=== PATIENT | male | born 1950 | race Caucasian/White ===

== ENCOUNTER → 2018-10-14 09:50 | Outpatient (CLI) | payer MEDICARE, SELFPAY ==
--- NOTE | 2018-10-14 10:22 | XR_ITS ---
XR chest 2V HISTORY: Cough. Smoker. ITS.REASON: HTN, DIZZINESS,AMNESIA ORDERING PHYSICIAN: Christo Stevens MD PATIENT AGE: 68 years Technique: PA and lateral chest COMPARISON: PA and lateral chest 03/24/2017 FINDINGS: No acute findings. Lungs well expanded and clear. No significant change. Very vague density at the right mid lung seen in March 2017 not appreciable on today's study Left lung clear unremarkable. The heart is normal in size with jacques and mediastinal structures unremarkable. T-spine. Minimal dextro scoliosis on frontal view;... With stable accentuated kyphosis at thoracolumbar junction due to the wedge compression changes at T12 vertebra. These are unchanged since previous studies from 2014 CT and 2017 CXR.. Chest wall otherwise unremarkable. No pleural effusion. No pneumothorax. Normal pulmonary vascularity. IMPRESSION stable chest nothing definitely acute. Lungs clear . Minor other observations in text
[2018-10-14 10:58] LABS: Basophils # 0.1 K/mm3 (0-0.2); Basophils % 1.1 % (0.1-2.0); Eosinophils # 0.1 K/mm3 (0.0-0.4); Eosinophils % 3.1 % (0.1-12.0); Hematocrit 34.9 % (42.0-52.0); Hemoglobin 11.4 g/dL (14.1-18.0); Lymphocytes # 1.4 K/mm3 (0.7-4.5); Lymphocytes % 34.3 % (10-50); Mean Corpuscular HGB Conc 32.8 g/dL (31.8-35.4); Mean Corpuscular Hemoglobin 29.3 pg (27.0-31.2); Mean Corpuscular Volume 89.3 fl (80-94); Mean Platelet Volume 7.1 fl (7.4-10.4); Monocytes # 0.2 K/mm3 (0.1-1.0); Monocytes % 5.7 % (1.7-9.3); Neutrophils # 2.2 K/mm3 (1.8-7.8); Neutrophils % 55.8 % (37.0-80.0); Platelet Count 217 K/mm3 (142-424); Red Cell Distribution Width 13.8 % (11.5-17.5)
[2018-10-14 12:31] LABS: Hemoglobin A1C 5.9 % (0.0-7.0)
[2018-10-14 12:40] LABS: Alanine Aminotransferase 25 U/L (12-78); Albumin Level 3.9 gm/dL (3.4-5.0); Albumin/Globulin Ratio 1.4 (1.1-1.8); Alkaline Phosphatase 85 U/L (46-116); Anion Gap 10.5 mEq/L (5-15); Aspartate Amino Transferase 15 U/L (15-37); Bilirubin,Total 0.4 mg/dL (0.2-1.0); Blood Urea Nitrogen 13 mg/dL (7-18); Calcium 8.5 mg/dL (8.5-10.1); Carbon Dioxide 32 mmol/L (21.0-32.0); Chloride 105 mmol/L (98-107); Chol/HDL Ratio 4.8 (1-3.5); Cholesterol 211 mg/dL (140-200); Creatinine,Serum 1.17 mg/dL (0.70-1.30); Estimated Glomerular Filt Rate 62 ml/min (>60); GFR (African American) 75 ML/MIN (>60); Globulin 2.7 gm/dl (1.3-3.2); Glucose 103 mg/dL (74-106); HDL Cholesterol 44 mg/dL (27-67); LDL Cholesterol 151 mg/dL (0-130); Potassium 4.5 mmoL/L (3.5-5.1); Prostate Specific Ag Screen 0.4 ng/mL (0.0-4.0); Sodium 143 mmol/L (136-145); Thyroid Stimulating Hormone 0.79 uIU/ml (0.358-3.740); Total Protein,Serum 6.6 gm/dL (6.4-8.2); Triglycerides 79 mg/dL (30-200); VLDL Cholesterol 16 mg/dL (0-40)
[2018-10-15 10:58] LABS: Vitamin D 25 Hydroxy 17.4 ng/mL (30.0-100.0)
== END ==
PROVIDERS: PCP Family Medicine; Visit Provider Family Medicine
DX: Z12.5 Encounter for screening for malignant neoplasm of prostate (principal); R42 Dizziness and giddiness; R41.3 Other amnesia; R73.9 Hyperglycemia, unspecified; E55.9 Vitamin D deficiency, unspecified; E78.5 Hyperlipidemia, unspecified; I10 Essential (primary) hypertension
CPT/HCPCS: 36415; 71046; 80053; 80061; 82652; 83036; 84443; 85025; G0103

== ENCOUNTER → 2018-10-17 09:13 | Outpatient (CLI) | payer MEDICARE, SELFPAY ==
--- NOTE | 2018-10-17 | CI_ITS ---
Cerebrovascular Exam Indications: 433.10 Occlusion/stenosis of carotid artery without cerebral infarction. 780.4 Dizziness and giddiness. IMPRESSIONS 1. The bilateral vertebral arteries are patent with normal antegrade flow. 2. Study suggests 20-49% stenosis involving the right internal carotid artery and the left internal carotid artery. No change from the study of 01-Apr-2017. Carotid duplex study. Complete study and Doppler flow study including spectral analysis, color and mason scale imaging. Location: Vascular laboratory. Patient status: Outpatient. Tables: Arterial flow: + +--------+--------+ Location V sys V ed + +--------+--------+ Right CCA - proximal 52.6cm/s 18.9cm/s + +--------+--------+ Right CCA - distal 55.8cm/s 17.3cm/s + +--------+--------+ Right ECA 58.1cm/s -------- + +--------+--------+ Right ICA - proximal 108cm/s 40.1cm/s + +--------+--------+ Right ICA - mid 119cm/s 44.8cm/s + +--------+--------+ Right ICA - distal 73.1cm/s 30.6cm/s + +--------+--------+ Right vertebral 46.4cm/s -------- + +--------+--------+ Left CCA - proximal 66cm/s 20.4cm/s + +--------+--------+ Left CCA - distal 62.9cm/s 18.9cm/s + +--------+--------+ Left ECA 66cm/s -------- + +--------+--------+ Left ICA - proximal 105cm/s 43.2cm/s + +--------+--------+ Left ICA - mid 90.6cm/s 29.5cm/s + +--------+--------+ Left ICA - distal 68.1cm/s 22.5cm/s + +--------+--------+ Left vertebral 25.9cm/s -------- + +--------+--------+ Velocity ratios: + + + + + + Right, V sys Right, V ed Left, V sys Left, V ed + + + + + + Max ICA/dist CCA 2.13 2.59 1.67 2.29 + + + + + + (Report amended ) Electronically signed by: Lorenzo Staley [id number]
--- NOTE | 2018-10-17 09:39 | MR_ITS ---
MR head/brain wo/w con Ordering Physician: Christo Stevens MD Patient Age: 68 years: Male HISTORY: ITS.REASON: MEMORY LOSS TECHNIQUE: MR the brain with neck contrast : Precontrast Multiplanar FLAIR, T1, T2 weighted images along with axial diffusion/ADC imaging performed on 1.5 T. Siemens, MRI. Postcontrast imaging Following 15 mL ProHance T1-weighted images axial & coronal plane performed COMPARISON :March 2011 MRI brain FINDINGS . Normal cranial cervical junction and sella unremarkable. Ventricles and basal cisterns appear satisfactory. Mild diffuse cerebral atrophy age-appropriate. Diffusion images reveal no acute or recent infarct. Postcontrast images of reveal no abnormal areas of enhancement. No mass lesion. No mass effect. It FLAIR images show numerous small scattered high signal foci throughout deep white matter most numerous high signal foci at subcortical regions bilaterally these are similar to 2011 MRI brain with perhaps a few additional high signal foci bilaterally definitely notable here at the superior left subcortical towards frontal lobes is also a few new high signal foci overlying the basal ganglia left There is no territorial infarct. No subdural or extra-axial collections. The visualized paranasal sinuses are well-developed and fairly clear except for some scant mucosal thickening anterior ethmoid air cells. Negligible The mastoid air cells region unremarkable. The CP angles are clear. Cranial nerve VII and VIII appears satisfactory passing to the respective IACs no abnormal enhancement here. The cerebellar hemispheres appear normal. I would note Minimal high signal reflecting likely prominent perivascular spaces at the left more than right cerebral peduncle. But also some generous perivascular spaces at the floor the basal ganglia noted. No associated gliosis signal at these areas this favor perivascular spaces rather than small vessel ischemic foci. IMPRESSION......... No acute findings. No mass lesion. No abnormal areas of enhancement.. No territorial infarct Chronic small vessel deep white matter ischemic/ gliotic changes are again seen bilaterally at cerebral hemispheres is similar to thousand 11 .... These are most numerous & evident at the subcortical regions bilaterally. ..Majority of these high signal foci were seen on 2011 MRI brain, with only slight progression in number of high signal foci of in the interval.
== END ==
PROVIDERS: PCP Family Medicine; Visit Provider Family Medicine
DX: I65.23 Occlusion and stenosis of bilateral carotid arteries (principal); R41.3 Other amnesia; S09.90XA Unspecified injury of head, initial encounter
CPT/HCPCS: 70553; 93880

== ENCOUNTER → 2019-03-23 13:08 | Outpatient (CLI) | payer MEDICARE, OTHER, SELFPAY ==
--- NOTE | 2019-03-23 13:13 | US_ITS ---
US thyroid HISTORY: ITS.REASON: MULTINODULAR THYROID ORDERING PHYSICIAN: Christo Stevens MD PATIENT AGE: 69 years Comparison: None FINDINGS: The right lobe is 3.9 x 2.2 x 1.6 cm. There are several small cystic nodules on the right. The largest nodule is in the mid polar region at 13 x 10 mm and is mostly cystic with some internal areas of irregular echogenicity. The left lobe is 4.5 x 2.5 x 2.7 cm. In the mid pole on the left there is a 2 x 1.7 cm partially cystic nodule with some nodularity along the margins. There is a 9 mm cystic area in the lower pole and a 6 mm cystic area in the upper pole IMPRESSION: There are bilateral complex cystic lesions of the thyroid gland measuring up to 13 mm in the mid polar region on the right and 2 cm in the mid polar region on the left. Follow-up suggested to confirm stability
== END ==
PROVIDERS: PCP Family Medicine; Visit Provider Family Medicine
DX: E04.2 Nontoxic multinodular goiter (principal)
CPT/HCPCS: 76536

== ENCOUNTER → 2019-09-26 12:46 | Outpatient (CLI) | payer MEDICARE, OTHER, SELFPAY ==
--- NOTE | 2019-09-26 12:49 | US_ITS ---
PROCEDURE: US THYROID CLINICAL INDICATION: MULTINODULER THYROID Follow-up multiple thyroid nodules COMPARISON: THY US thyroid from 03/23/2019 FINDINGS: Right lobe: 3.3 x 1.2 x 2.1 cm. There is a 1.2 x 1 cm cystic nodule in the mid aspect of the right thyroid lobe with some internal debris. This is unchanged. In addition there is a 0.5 cm cystic lesion in the lower pole and a 0.5 cm additional cyst in the lower pole. No new nodules are evident. Left lobe: 4.5 x 2.3 x 2.6 cm. A 6 mm cyst is present in the upper pole. A complex cystic lesion is present in the mid polar region at 2.2 x 1.8 cm not significantly changed. There is some nodularity along the lower pole of this nodule. This is not significantly changed. Isthmus: Unremarkable Additional findings: IMPRESSION: No change multinodular goiter with multiple bilateral cysts Dictated by: Maicol Osman MD 09/26/2019 17:29 Electronically signed by Maicol Osman MD in [facility] 09/26/2019 17:29
== END ==
PROVIDERS: PCP Family Medicine; Visit Provider Family Medicine
DX: E04.2 Nontoxic multinodular goiter (principal)
CPT/HCPCS: 76536

== ENCOUNTER 2020-11-21 16:11 | Emergency (ER) | payer MEDICARE, OTHER, SELFPAY ==
[2020-11-21 16:12] VITALS: BP 198/110; PULSE 54; RESP 16; TEMP 36.8; O2SAT 98; BMI 24.2
--- NOTE | 2020-11-21 16:27 | XR_ITS ---
PROCEDURE: XR CHEST PORTABLE CLINICAL HISTORY: hip pain Posttraumatic pain, fall with injury and pain COMPARISON: CR CXR CHEST(2 VIEWS-NOT PORTABLE) from 12/29/2013 CR CXR CHEST(2 VIEWS-NOT PORTABLE) from 03/24/2017 CR CXR2V XR chest 2V from 10/14/2018 FINDINGS: The cardiomediastinal silhouette and pulmonary vascularity are within normal limits. The lungs are clear without infiltrates, suspicious nodules, or pleural effusions. No acute bony abnormalities. IMPRESSION: No acute findings. Dictated by: Maicol Osman MD 11/21/2020 18:16 Maicol Osman MD in [facility] 11/21/2020 18:16
--- NOTE | 2020-11-21 16:27 | XR_ITS ---
PROCEDURE: XR FEMUR RT 2V CLINICAL INDICATION: fall, pain COMPARISON: CR [id number] KNEE-LIMITED 2 VIEWS-RT from 05/28/[address] PELVIS WO CON from 11/21/2020 CR XR HIP RT 2-3V W/PELVIS from 11/21/2020 FINDINGS: There are mild osteoarthritic changes of the right hip. Status post prior total knee replacement with metallic stems in the distal femur and proximal tibia. Prominent hypertrophic changes are present at patella. There are prominent calcific densities anterior to the knee joint and may be due to old fractures or areas of heterotopic ossification or loose bodies. No acute fracture or dislocation is evident. IMPRESSION: Osteoarthritis of the right hip, no acute fracture. Status post total knee replacement with prominent ossicles along the anterior aspect of the knee joint and may be due to heterotopic ossification or loose bodies Dictated by: Maicol Osman MD 11/21/2020 18:21 Maicol Osman MD in [facility] 11/21/2020 18:21
--- NOTE | 2020-11-21 16:28 | XR_ITS ---
PROCEDURE: XR FEMUR RT 2V CLINICAL INDICATION: fall, pain COMPARISON: CR [id number] KNEE-LIMITED 2 VIEWS-RT from 05/28/[address] PELVIS WO CON from 11/21/2020 CR XR HIP RT 2-3V W/PELVIS from 11/21/2020 FINDINGS: There are mild osteoarthritic changes of the right hip. Status post prior total knee replacement with metallic stems in the distal femur and proximal tibia. Prominent hypertrophic changes are present at patella. There are prominent calcific densities anterior to the knee joint and may be due to old fractures or areas of heterotopic ossification or loose bodies. No acute fracture or dislocation is evident. IMPRESSION: Osteoarthritis of the right hip, no acute fracture. Status post total knee replacement with prominent ossicles along the anterior aspect of the knee joint and may be due to heterotopic ossification or loose bodies Dictated by: Maicol Osman MD 11/21/2020 18:21 Maicol Osman MD in [place] 11/21/2020 18:21
--- NOTE | 2020-11-21 16:28 | PC.NURSE ---
v/s delayed due to IV insertion.
--- NOTE | 2020-11-21 16:31 | HMH.EDGENADL ---
ED Disposition Clinical Impression: Contusion of right hip and thigh Qualifiers: Encounter type: initial encounter Qualified Code(s): S70.01XA - Contusion of right hip, initial encounter Fall Qualifiers: Encounter type: initial encounter Qualified Code(s): W19.XXXA - Unspecified fall, initial encounter Disposition: Home, Self-Care Condition on Discharge: Fair Instructions: DI for Contusion, DI for Hip Pain Additional Instructions: You have been evaluated for right hip contusion, fall. Please use compression, Gio wrap. Please take Tylenol and Motrin. Use heat. Follow-up with your primary care physician in 1 to 2 days for symptom recheck. Return to the emergency department if you have any new or worsening symptoms, pain, swelling, difficulty walking. Referrals: Christo Stevens MD [Primary Care Provider] - Time of Disposition: 19:03 - Critical Care Critical Care Time: No Attestation: On 11/21/20, the high probability of a clinically significant, sudden or life threatening deterioration of the following system(s) required my full and direct attention, intervention and personal management. The time I documented below is in addition to time spent performing reported procedures but includes the following listed in this critical care notation. Medical Decision Making - Medical Records Medical records reviewed: Yes: I reviewed the patient's medical records. - Aric Inquiry Pt receiving controlled substance: No Vital Signs: 11/21/20 16:12 11/21/20 16:36 11/21/20 17:01 Temperature 98.3 F Temperature Source Oral Pulse Rate [Radial] 54 L 75 Respiratory Rate 16 Blood Pressure [Right Arm] 198/110 H 167/120 H 163/86 H Blood Pressure Mean [Right Arm] 139 135 111 Blood Pressure Source [Right Arm] Automatic Cuff Blood Pressure Position [Right Arm] Sitting 02 Sat by Pulse Oximetry 98 98 Oxygen Delivery Method Room Air Room Air 11/21/20 17:02 11/21/20 18:42 Temperature Temperature Source Pulse Rate [Radial] 74 57 L Respiratory Rate 16 Blood Pressure [Right Arm] 163/86 H 145/92 H Blood Pressure Mean [Right Arm] 111 109 Blood Pressure Source [Right Arm] Automatic Cuff Blood Pressure Position [Right Arm] Sitting Sitting 02 Sat by Pulse Oximetry 96 100 Oxygen Delivery Method Room Air Room Air - Lab Data Lab Results 11/21/20 16:30: WBC 6.5, RBC 4.08 L, Hgb 11.8 L, Hct 37.2 L, MCV 91.0, MCH 29.0, MCHC 31.8, RDW 13.3, Plt Count 238, MPV 7.6, Neut % (Auto) 75.4, Lymph % (Auto) 17.5, Dillingham % (Auto) 4.9, Eos % (Auto) 1.3, Baso % (Auto) 0.9, Neut # (Auto) 4.9, Lymph # (Auto) 1.2, Dillingham # (Auto) 0.3, Eos # (Auto) 0.1, Baso # (Auto) 0.1 11/21/20 16:30: Sodium 137, Potassium 3.7, Chloride 101, Carbon Dioxide 31 H, Anion Gap 8.7, BUN 9, Creatinine 1.30 H, Estimated Creat Clear 52, Estimated GFR 55 L, Est GFR ( Amer) 66, Glucose 125 H, Calcium 9.9, Total Bilirubin 0.6, AST 31, ALT 29, Alkaline Phosphatase 67, Total Protein 7.5, Albumin 4.7, Globulin 2.8, Albumin/Globulin Ratio 1.7 11/21/20 16:30: SARS-CoV-2 IgG Ab (Rapid) Negative, SARS-CoV-2 IgM Ab (Rapid) Negative Result diagrams: 11/21/20 16:30 11/21/20 16:30 Orders (Tests/Meds): ED MEDICATIONS Discontinued Medications Generic Name Dose Route Start Last Admin Trade Name Freq PRN Reason Stop Dose Admin Al Hydrox/Mg Hydrox/Simethicone 30 ml 11/21/20 17:15 11/21/20 17:16 Aluminum & Magnesium Hydroxide 30ml Udc PO 11/21/20 17:16 30 ml ONCE ONE Administration Hydromorphone HCl 0.5 mg 11/21/20 19:00 11/21/20 17:45 Hydromorphone 2mg/Ml Syringe IV 11/21/20 19:01 0.5 mg ONCE ONE Administration Morphine Sulfate 4 mg 11/21/20 16:31 11/21/20 16:33 Morphine 4mg/Ml Syringe IV 11/21/20 16:32 4 mg ONCE ONE Administration Ondansetron HCl 4 mg 11/21/20 16:31 11/21/20 16:33 Ondansetron 4mg/2ml Vial IV 11/21/20 16:32 4 mg ONCE ONE Administration ORDERS Category Date Time Status CT femur RT
[2020-11-21 16:36] VITALS: BP 167/120
--- NOTE | 2020-11-21 16:40 | PC.NURSE ---
pt to rad
[2020-11-21 16:44] LABS: Basophils # 0.1 K/mm3 (0-0.2); Basophils % 0.9 % (0.1-2.0); Eosinophils # 0.1 K/mm3 (0.0-0.4); Eosinophils % 1.3 % (0.1-12.0); Hematocrit 37.2 % (42.0-52.0); Hemoglobin 11.8 g/dL (14.1-18.0); Lymphocytes # 1.2 K/mm3 (0.7-4.5); Lymphocytes % 17.5 % (10-50); Mean Corpuscular HGB Conc 31.8 g/dL (31.8-35.4); Mean Platelet Volume 7.6 fl (7.4-10.4); Monocytes # 0.3 K/mm3 (0.1-1.0); Monocytes % 4.9 % (1.7-9.3); Neutrophils # 4.9 K/mm3 (1.8-7.8); Neutrophils % 75.4 % (37.0-80.0); Platelet Count 238 K/mm3 (142-424); Red Blood Count 4.08 M/mm3 (4.60-6.20); Red Cell Distribution Width 13.3 % (11.5-17.5); White Blood Count 6.5 K/mm3 (4.8-10.8)
[2020-11-21 16:58] LABS: Alanine Aminotransferase 29 U/L (12-78); Albumin Level 4.7 g/dl (3.5-5.0); Albumin/Globulin Ratio 1.7 (1.1-1.8); Alkaline Phosphatase 67 U/L (38-126); Anion Gap 8.7 mEq/L (5-15); Aspartate Amino Transferase 31 U/L (17-59); Bilirubin,Total 0.6 mg/dl (0.2-1.3); Blood Urea Nitrogen 9 mg/dl (9-20); Calcium 9.9 mg/dl (8.4-10.2); Carbon Dioxide 31 mmol/L (22.0-30.0); Chloride 101 mmol/L (98-107); Creatinine Clearance Estimated 52 mL/min (50-200); Estimated Glomerular Filt Rate 55 ml/min (>60); GFR (African American) 66 ML/MIN (>60); Globulin 2.8 g/dL (1.3-3.2); Glucose 125 mg/dl (74-100); Potassium 3.7 mmoL/L (3.5-5.1); Sodium 137 mmol/L (136-145); Total Protein,Serum 7.5 g/dl (6.3-8.2)
--- NOTE | 2020-11-21 17:00 | PC.NURSE ---
Pt returned from rad.
[2020-11-21 17:01] VITALS: BP 163/86; PULSE 75; O2SAT 98
[2020-11-21 17:02] VITALS: BP 163/86; PULSE 74; RESP 16; O2SAT 96
[2020-11-21 17:23] LABS: Coronavirus 19 IgG Antibody Negative (Negative); Coronavirus 19 IgM Antibody Negative (Negative)
--- NOTE | 2020-11-21 17:30 | CT_ITS ---
PROCEDURE: CT PELVIS WO CON CLINICAL INDICATION: fall, right hip pain, unable to walk COMPARISON: CT CT FEMUR RT WO CON from 11/21/2020 TECHNIQUE: Axial images obtained with sagittal and coronal reformats. All CT scans at the facility use one or more dose reduction, viz: automated exposure control, ma/kV adjustment per patient size (including targeted exams where dose is matched to indication, i.e. head), or iterative reconstruction technique. FINDINGS: CT pelvis: No fracture or dislocation. There are moderate osteoarthritic changes in both hips left greater than. No lytic or blastic change. There are overlying osteophytes at the acetabula and femurs. CT femur: There is a enlargement of the vastus intermedius muscle with mild told areas increased density consistent with a large hematoma involving the vastus intermedius muscle. Artifact is present from an intramedullary drew within the mid and distal femur. There is significant artifact at the knee from a total knee prosthesis. Calcifications are present anterior to the knee joint as noted on the radiograph. Knee joint effusion is present. IMPRESSION: 1. No acute fracture. 2. Osteoarthritic change of the hip. Status post total knee replacement with significant artifact. 3. Enlargement with increased density of the vastus intermedius muscle consistent with hematoma. Follow-up suggested as a solid neoplasm could have a similar appearance.. Dictated by: Maicol Osman MD 11/22/2020 05:07 Maicol Osman MD in [facility] 11/22/2020 05:07
--- NOTE | 2020-11-21 18:08 | PC.NURSE ---
Pt to rad.
[2020-11-21 18:42] VITALS: BP 145/92; PULSE 57; O2SAT 100
--- NOTE | 2020-11-21 19:07 | PC.NURSE ---
darwin wrap applied to rt upper leg. attempted to ambulate pt. pt unable to ambulate due to increasing pain
[2020-11-21 20:07] VITALS: BP 145/80; PULSE 81; RESP 16; TEMP 36.7; O2SAT 96
== END 2020-11-21 20:09 | disposition home or self-care (01) ==
PROVIDERS: Emergency Provider Emergency Medicine; PCP Family Medicine
DX: S70.01XA Contusion of right hip, initial encounter (principal); W18.09XA Striking against other object with subsequent fall, initial encounter; R20.0 Anesthesia of skin; Z79.82 Long term (current) use of aspirin; Z79.899 Other long term (current) drug therapy; Z88.8 Allergy status to other drugs, medicaments and biological substances; I10 Essential (primary) hypertension; Z90.49 Acquired absence of other specified parts of digestive tract; Z82.49 Family history of ischemic heart disease and other diseases of the circulatory system
CPT/HCPCS: 71045; 72192; 73502; 73552; 73700; 80053; 85025; 86328; 96374; 96375; 99283; J2405

== ENCOUNTER → 2021-09-17 09:08 | Outpatient (CLI) | payer MEDICARE, OTHER, SELFPAY ==
[2021-09-17 11:30] LABS: Hemoglobin A1C 5.9 % (4.0-6.0)
[2021-09-17 11:38] LABS: Chloride 101 mmol/L (98-107)
[2021-09-17 11:39] LABS: Potassium 4.4 mmoL/L (3.5-5.1); Sodium 140 mmol/L (136-145)
[2021-09-17 11:40] LABS: 25-OH Vitamin D, Total 25.2 ng/mL (30-100)
[2021-09-17 11:41] LABS: Alanine Aminotransferase 13 U/L (12-78); Albumin Level 4.5 g/dl (3.5-5.0); Albumin/Globulin Ratio 1.9 (1.1-1.8); Alkaline Phosphatase 66 U/L (38-126); Anion Gap 9.4 mEq/L (5-15); Aspartate Amino Transferase 25 U/L (17-59); Bilirubin,Total 0.6 mg/dl (0.2-1.3); Blood Urea Nitrogen 18 mg/dl (9-20); Carbon Dioxide 34 mmol/L (22.0-30.0); Estimated Glomerular Filt Rate 50 ml/min (>60); GFR (African American) 61 ML/MIN (>60); Globulin 2.4 g/dL (1.3-3.2); Total Protein,Serum 6.9 g/dl (6.3-8.2); Triglycerides 113 mg/dl (30-150); VLDL Cholesterol 23 mg/dL (0-40)
[2021-09-17 11:42] LABS: Calcium 9.2 mg/dl (8.4-10.2); Cholesterol 210 mg/dl (140-200); Glucose 115 mg/dl (74-100); HDL Cholesterol 52 mg/dl (40-60)
[2021-09-17 17:03] LABS: Prostate Specific Ag Screen 0.9 ng/ml (0.0-4.0)
== END ==
PROVIDERS: Visit Provider Family Medicine
DX: I10 Essential (primary) hypertension (principal); E78.5 Hyperlipidemia, unspecified; E55.9 Vitamin D deficiency, unspecified; R73.9 Hyperglycemia, unspecified; Z12.5 Encounter for screening for malignant neoplasm of prostate
CPT/HCPCS: 36415; 80053; 80061; 82306; 83036; G0103

== ENCOUNTER 2021-10-03 12:00 | Emergency (ER) | payer MEDICARE, OTHER, SELFPAY ==
[2021-10-03 12:01] VITALS: BP 161/76; PULSE 61; RESP 16; TEMP 36.7; O2SAT 97; BMI 23.3
--- NOTE | 2021-10-03 12:24 | CT_ITS ---
PROCEDURE: CT FACIAL BONES WO CON CLINICAL HISTORY: fall COMPARISON: No exams were available for comparison TECHNIQUE: Axial images obtained with sagittal and coronal reformats. All CT scans at the facility use one or more dose reduction, viz: automated exposure control, ma/kV adjustment per patient size (including targeted exams where dose is matched to indication, i.e. head), or iterative reconstruction technique. FINDINGS: No obvious fracture. No sinus air-fluid level. No significant soft tissue swelling. There are severe osteoarthritic changes of the right TMJ with mild left TMJ osteoarthritis. Uvula is prominent and elongated. Unremarkable orbits IMPRESSION: No acute finding Dictated by: Maicol Osman MD 10/03/2021 14:09 Maicol Osman MD in [facility] 10/03/2021 14:09
--- NOTE | 2021-10-03 12:24 | CT_ITS ---
PROCEDURE: CT HEAD/BRAIN WO CON CLINICAL INDICATION: fall COMPARISON: None TECHNIQUE: Axial images obtained. All CT scans at the facility use one or more dose reduction, viz: automated exposure control, ma/kV adjustment per patient size (including targeted exams where dose is matched to indication, i.e. head), or iterative reconstruction technique. FINDINGS: No midline shift, mass effect, intracranial hemorrhage, hydrocephalus, or extra-axial fluid collection is evident. There is generalized atrophy with hypoattenuation of the periventricular white matter consistent with microangiopathic changes. The calvarium has an unremarkable appearance. No mastoid effusion. No sinus air-fluid level. IMPRESSION: No acute intracranial finding Dictated by: Maicol Osman MD 10/03/2021 13:29 Maicol Osman MD in [facility] 10/03/2021 13:29
--- NOTE | 2021-10-03 12:24 | CT_ITS ---
PROCEDURE: CT CERVICAL SPINE WO CON CLINICAL INDICATION: fall COMPARISON: No exams were available for comparison TECHNIQUE: Axial images obtained with sagittal and coronal reformats. All CT scans at the facility use one or more dose reduction, viz: automated exposure control, ma/kV adjustment per patient size (including targeted exams where dose is matched to indication, i.e. head), or iterative reconstruction technique. Axial spiral CT scanning performed of the cervical spine beginning at the base of the skull and continuing to the upper T-spine. 3-D multiplanar reconstruction with 3-D manipulation of volumetric data set in image rendering was completed by the radiologist and/or technologist with the supervision of the radiologist on independent workstation. FINDINGS: Normal alignment. No acute fracture or dislocation. There is an area of sclerosis involving the C7 vertebra at the proximal aspect of the spinous process and may be due to a bone island. There is multilevel cervical spondylosis with degenerative disc disease from C2 through C7. Right-sided mild foraminal narrowing at C3-C4, right-sided foraminal narrowing at C5-C6. Bulging disc osteophyte complex noted at C5-C6, bilateral foraminal narrowing at C6-C7. Right paracentral disc osteophyte complex C6-C7. 1.9 cm left thyroid hypodense nodule. Nonemergent ultrasound suggested. The uvula is prominent and elongated. IMPRESSION: 1. No acute fracture. 2. Multilevel cervical spondylosis. Please see above for detailed description. 3. Elongated prominent uvula 4. 1.9 cm left thyroid nodule. There is some minimal calcification along the inferior aspect of the nodule. Consider nonemergent thyroid ultrasound Dictated by: Maicol Osman MD 10/03/2021 14:04 Maicol Osman MD in [facility] 10/03/2021 14:04
--- NOTE | 2021-10-03 12:24 | XR_ITS ---
PROCEDURE: XR TIBIA FIBULA LT 2V CLINICAL INDICATION: fall COMPARISON: No exams were available for comparison FINDINGS: No fracture or dislocation. No lytic or blastic change. There is normal mineralization. Post total knee replacement. Heterotopic ossification noted laterally at the knee joint the Other findings:None. IMPRESSION: No acute findings. Dictated by: Maicol Osman MD 10/03/2021 14:19 Maicol Osman MD in [facility] 10/03/2021 14:19
--- NOTE | 2021-10-03 12:24 | XR_ITS ---
PROCEDURE: XR FEMUR LT 2V CLINICAL INDICATION: fall COMPARISON: CR XR FEMUR RT 2V from 11/21/2020 CR XR HIP LT 2-3V W/PELVIS from 10/03/2021 FINDINGS: No fracture or dislocation. Moderate osteoarthritis of the left hip. There is some mixed osteosclerosis and lucency noted in the femoral head not as well demonstrated on the hip films does raise suspicion for avascular necrosis of the left femoral head. Status post total knee replacement with good alignment. Other findings:None. IMPRESSION: No acute fracture. Osteoarthritis of the left hip with questionable avascular necrosis Dictated by: Maicol Osman MD 10/03/2021 14:18 Maicol Osman MD in [facility] 10/03/2021 14:18
--- NOTE | 2021-10-03 12:24 | XR_ITS ---
PROCEDURE: XR KNEE RT 3V CLINICAL INDICATION: fall COMPARISON: CR [id number] KNEE-4 OR 5 VIEWS-RT from 09/27/2013 CR [id number] KNEE-4 OR 5 VIEWS-RT from 04/24/2015 CR [id number] KNEE-LIMITED 2 VIEWS-RT from 05/13/2015 CR [id number] KNEE-LIMITED 2 VIEWS-RT from 05/28/2015 FINDINGS: Status post total knee replacement. There are long stems at the femur and tibia. No acute fracture or dislocation of the knee. There is heterotopic ossification along the distal femur laterally, lateral knee joint, infrapatellar region, and along the medial knee joint space. IMPRESSION: No acute fracture. Status post total knee replacement with heterotopic ossification as described above. Dictated by: Maicol Osman MD 10/03/2021 14:21 Maiocl Osman MD in [facility] 10/03/2021 14:21
--- NOTE | 2021-10-03 12:24 | XR_ITS ---
PROCEDURE: XR SHOULDER LT MIN 2V CLINICAL INDICATION: fall COMPARISON: No exams were available for comparison FINDINGS: No acute fracture or dislocation. Mild osteoarthritic changes of the glenohumeral joint and AC joint. There is an old left 3rd rib fracture. IMPRESSION: No acute findings. Dictated by: Maicol Osman MD 10/03/2021 14:28 Maicol Osman MD in [facility] 10/03/2021 14:28
--- NOTE | 2021-10-03 12:31 | XR_ITS ---
PROCEDURE: XR CHEST 2V CLINICAL HISTORY: fall COMPARISON: CR CXR CHEST(2 VIEWS-NOT PORTABLE) from 12/29/2013 CR CXR CHEST(2 VIEWS-NOT PORTABLE) from 03/24/2017 CR CXR2V XR chest 2V from 10/14/2018 CR XR CHEST PORTABLE from 11/21/2020 FINDINGS: The cardiomediastinal silhouette and pulmonary vascularity are within normal limits. There is patchy increased density in the left paraspinal region inferiorly at the T10-T11 area. This is of questionable clinical significance. There is mild patient rotation which may accentuate this finding. There is kyphosis of the thoracic spine with chronic wedge compression changes T11, T12, and L1. There is a minimally offset left 3rd rib fracture laterally. This may be old. Please correlate with clinical parameters.. Old fractures are present involving the left 5th and 6th ribs. IMPRESSION: Left 3rd 5th and 6th rib fractures which are probably old. Please correlate with patient's area of pain and tenderness. Slight increased paraspinal density in the lower thoracic spine on the left. This could be due to an area of infiltrate versus fibrosis or even mass. Chest CT may provide further evaluation. Dictated by: Maicol Osman MD 10/03/2021 14:27 Maicol Osman MD in [facility] 10/03/2021 14:27
--- NOTE | 2021-10-03 12:31 | XR_ITS ---
PROCEDURE: XR HIP LT 2-3V W/PELVIS CLINICAL INDICATION: fall COMPARISON: CR XR HIP RT 2-3V W/PELVIS from 11/21/2020 FINDINGS: Moderate osteoarthritic change of the left hip with mild flattening of the femoral head laterally. No acute fracture or dislocation. There are mild osteoarthritic changes of the right hip. IMPRESSION: Osteoarthritis, no acute fracture. Dictated by: Maicol Osman MD 10/03/2021 14:16 Maicol Osman MD in [facility] 10/03/2021 14:16
--- NOTE | 2021-10-03 12:32 | PC.NURSE ---
Notified rad of image orders
--- NOTE | 2021-10-03 12:44 | PC.NURSE ---
pt gone to ct
[2021-10-03 13:30] VITALS: BP 166/90; PULSE 56; O2SAT 99
--- NOTE | 2021-10-03 14:50 | PC.NURSE ---
NOTIFIED RAD OF CHEST CT
--- NOTE | 2021-10-03 14:50 | HMH.EDGENADL ---
ED Disposition Clinical Impression: Left against medical advice Disposition: Left Against Medical Advice Condition on Discharge: Undetermined Referrals: hCristo Stevens MD [Primary Care Provider] - - Critical Care Critical Care Time: No Attestation: On 10/03/21, the high probability of a clinically significant, sudden or life threatening deterioration of the following system(s) required my full and direct attention, intervention and personal management. The time I documented below is in addition to time spent performing reported procedures but includes the following listed in this critical care notation. Medical Decision Making - Medical Records Medical records reviewed: Yes: I reviewed the patient's medical records. - Aric Inquiry Pt receiving controlled substance: No Vital Signs: 10/03/21 12:01 10/03/21 13:30 10/03/21 15:15 Temperature 98.1 F 98.1 F Temperature Source Oral Pulse Rate 56 L 79 Pulse Rate [Right Radial] 61 Respiratory Rate 16 18 Blood Pressure 166/90 H 148/79 H Blood Pressure [Right Arm] 161/76 H Blood Pressure Mean [Right Arm] 104 Blood Pressure Source [Right Arm] Automatic Cuff Blood Pressure Position [Right Arm] Sitting 02 Sat by Pulse Oximetry 97 99 Oxygen Delivery Method Room Air - Lab Data Lab results reviewed: Yes: I reviewed the patient's lab results. Orders (Tests/Meds): ED MEDICATIONS Discontinued Medications Generic Name Dose Route Start Last Admin Trade Name Freq PRN Reason Stop Dose Admin Tetanus/Diphtheria Toxoids 0.5 ml 10/03/21 14:37 Tetanus-Diphth Toxoid, Adult 0.5ml Syr IM 10/03/21 14:38 .ONCE ONE Medical Decision Narrative: It is a 8-year-old male presenting with head, neck, left shoulder, left hip and right knee pain s/p fall. Patient reports no loss of consciousness or blood thinner use. Differential diagnosis includes, but is not limited to, fracture, dislocation, contusion. On initial exam, patient is hemodynamically stable nontoxic-appearing. Patient's exam is significant for tenderness to palpation over the left temporal/parietal skull but no evidence of abrasion, laceration to face, head or neck. No palpable skull fracture. Exam is negative for C-spine tenderness on exam. No tenderness to T or L-spine. Patient has full strength in all extremities, is ambulatory. He was evaluated with CT head, CT C-spine, CT chest, x-rays of the right upper extremity, left lower extremity and right knee. Patient was treated with Toradol and Tylenol for pain. Imaging was significant for an incidental 1.9 cm thyroid nodule, multiple rib fractures which were likely old and increased paraspinal density in the lower thoracic spine which could signify a mass. Given findings, patient was to be evaluated with CT chest with contrast but patient left prior to completion of work-up. I attempted to reach patient over the telephone to discuss findings but I was unable to reach patient. General Adult HPI - General Chief complaint: Fall Stated complaint: AO 1217 fall, left side pain/brusing Time Seen by Provider: 10/03/21 13:30 Mode of Arrival: Ambulatory Source of Information: Patient Limitations: No Limitations Description of Symptoms (Recalled from ER Triage Doc. by RN): Pt states that he fell approx 30 mins REDYE HAND. Pt advises that he was moving a ping pong table, it fell over the porch, and he fell with it. Pt c/o pain in the lt face, eye, head, collar bone, shoulder, hip and clark. Pt also c/o rt knee pain. Pt has multiple skin tears and abrasions throughout these areas of pain. - History of Present Illness HPI narrative: Patient is a 71-year-old male presenting with a chief complaint of head, neck, left shoulder and left hip pain s/p fall. Patient reports he was moving a ping-pong table and fell approximately 4 feet with a table on top of him. Patient denies losing consciousness but has pain in the left temporal region. He als
[2021-10-03 15:15] VITALS: BP 148/79; PULSE 79; RESP 18; TEMP 36.7; O2SAT 97
--- NOTE | 2021-10-03 15:15 | PC.NURSE ---
Pt came to nurses station stating that he had been here long enough and that he wanted to leave. explained to pt that the doctor wanted him to have a CT of his chest. He asked how long it would be and I told him that I wasn't sure of a time frame but that rad was aware of the order. He stated that he wasn't going to wait that he wanted to go on and go. Pt signed AMA form and left dept.
== END 2021-10-03 15:15 | disposition left against medical advice (07) ==
PROVIDERS: Emergency Provider Emergency Medicine; PCP Family Medicine
DX: S00.83XA Contusion of other part of head, initial encounter (principal); S40.012A Contusion of left shoulder, initial encounter; S80.12XA Contusion of left lower leg, initial encounter; S70.02XA Contusion of left hip, initial encounter; W17.89XA Other fall from one level to another, initial encounter; Y92.018 Other place in single-family (private) house as the place of occurrence of the external cause; Z96.651 Presence of right artificial knee joint; I10 Essential (primary) hypertension; T07.XXXA Unspecified multiple injuries, initial encounter
CPT/HCPCS: 70450; 70486; 71046; 72125; 73030; 73502; 73552; 73562; 73590; 99282

== ENCOUNTER 2022-06-30 13:36 | Emergency (ER) | payer MEDICARE, OTHER, SELFPAY ==
[2022-06-30 13:50] VITALS: BP 141/66; PULSE 53; RESP 16; TEMP 36.9; O2SAT 98; BMI 24.2
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
--- NOTE | 2022-06-30 14:22 | HMH.EDWNDL ---
Discharge Plan Disposition Patient Disposition: Home, Self-Care Condition: Good Prescriptions Prescriptions: No Action aspirin [Aspir-81] 81 MG Tablet. 81 mg PO DAILY Referrals Follow up/Referrals: Christo Stevens MD [Primary Care Provider] - See instructions Activity Restrictions/Add. Instructions Additional Instructions/Restrictions: Gently cleanse the wound daily with mild soapy water. Subsequently apply antibiotic ointment and a nonadhesive dressing such as Telfa. Suture removal in 5 to 7 days and apply vitamin E oil thereafter to minimize scarring. Mild intermittent bleeding for which pressure should be applied. He may also apply ice packs as needed for swelling. Clinical Impressions Clinical Impression: Laceration Instructions Patient Instructions: DI for Laceration Repair Discharge ED Provider: Pablo Hoffmann Wound/Laceration HPI General Chief Complaint: Wound/Laceration Stated Complaint: AO [email or web address] lac on head Time Seen by Provider: 06/30/22 15:03 Mode of Arrival: Ambulatory Source of Information: Patient Limitations: No Limitations Description of Symptoms (Recalled from ER Triage Doc. by RN): Pt presents with lac to top of head. States that he was moving a table, bent over, and hit his head on the corner of the table. Denies LOC. Denies being on any blood thinners. Does c/o RODRIGUEZ History of Present Illness HPI narrative: Presents complaining of scalp pain and headache after having been struck by a table while attempting to move and inverted table. Only other complaint is that of mild mid back discomfort. He denies chest pain he denies loss of consciousness.'s are described as moderate and without exacerbating alleviating factors. Related Data Home Medications Medication Instructions Recorded Confirmed benazepril 10 mg tablet 20 mg PO ONCE Hypertension 11/26/17 11/21/20 latanoprost 0.005 % eye drops 2 drops ophthalmic (eye) DAILY . 11/26/17 11/21/20 22 days aspirin 81 mg tablet,delayed 81 mg PO DAILY . 04/25/18 11/21/20 release (Aspir-) Allergies Allergy/AdvReac Type Severity Reaction Status Date / Time butorphanol [From STADOL] Allergy Unknown Verified 06/30/22 15:49 PFSH PFS Social History Smoking Status: Never smoker second hand exposure: No alcohol intake: never current occupational status: retired Travel in the last 8 weeks: None household members: spouse ROS Obtained: Yes All systems reviewed & no additional complaints except as documented Constitutional Constitutional: Reports system reviewed and no additional complaints, except as documented Physical Exam General General appearance: alert and in no apparent distress Head Head exam: other (The superior aspect of the forehead at the hairline there is a 4 cm transverse laceration ranging in depth from 1 to 2 mm. Underlying ecchymosis or significant edema.) Eye Eye exam: Present normal appearance and PERRL Neck Neck exam: Present normal inspection Chest Chest inspection: Present normal inspection Respiratory Respiratory exam: Present normal lung sounds bilaterally Cardiovascular Cardiovascular exam: Present regular rate and normal rhythm Abdominal Exam Abdominal exam: Present soft; Absent tenderness Extremities Exam Extremities exam: Present normal inspection Back Exam Back exam: Present tenderness (Mild mid thoracic paraspinous tenderness.); Absent vertebral tenderness Neurological Exam Neurological exam: Present alert and oriented X3 Psychiatric Psychiatric exam: Present normal affect Skin Skin exam: Present warm and dry Lymphatic Lymphatic Findings: no adenopathy Medical Decision Making Aric Inquiry Pt receiving controlled substance: No Vital Signs: 06/30/22 13:50 06/30/22 16:39 Temperature 98.4 F 98.4 F Temperature Source Oral Oral Pulse Rate 60 Pulse Rate [Left Radial] 53 L Respiratory Rate 16 1
[2022-06-30 16:39] VITALS: BP 140/62; PULSE 60; RESP 18; TEMP 36.9; O2SAT 98
== END 2022-06-30 16:42 | disposition home or self-care (01) ==
PROVIDERS: Emergency Provider Emergency Medicine; PCP Family Medicine
DX: S01.01XA Laceration without foreign body of scalp, initial encounter (principal); R51.9 Headache, unspecified; W22.8XXA Striking against or struck by other objects, initial encounter; Y92.019 Unspecified place in single-family (private) house as the place of occurrence of the external cause
CPT/HCPCS: 12002; 70450; 90471; 90714; 99284

== ENCOUNTER → 2022-09-08 10:26 | Outpatient (CLI) | payer MEDICARE, OTHER, SELFPAY ==
--- NOTE | 2022-09-08 10:32 | XR_ITS ---
FINAL REPORT CLINICAL HISTORY: COVID TESTING weakness, fever COMPARISON: 10/03/2021 FINDINGS: SINGLE-VIEW CHEST The heart size is normal. The mediastinum is normal. The lungs are clear. There is elevation of the distal right clavicle, stable from previous. There is no pneumothorax. IMPRESSION: No acute cardiopulmonary process. Reviewed, Interpreted and Dictated by Alexandre Nicole III, MD Transcribed by Melissa Murillo Authenticated and [facility]
[2022-09-08 10:47] LABS: Influenza A, PCR Not Detected (NotDetected); Influenza B, PCR Not Detected (NotDetected)
[2022-09-08 10:55] LABS: Basophils % 0.6 % (0.1-2.0); Eosinophils # 0.1 K/mm3 (0.0-0.4); Eosinophils % 1.7 % (0.1-12.0); Hematocrit 38.5 % (42.0-52.0); Lymphocytes % 24.7 % (10-50); Mean Corpuscular HGB Conc 33.6 g/dL (31.8-35.4); Mean Corpuscular Hemoglobin 30.4 pg (27.0-31.2); Mean Corpuscular Volume 90.5 fl (80-94); Mean Platelet Volume 8.2 fl (7.4-10.4); Monocytes # 0.3 K/mm3 (0.1-1.0); Monocytes % 6.3 % (1.7-9.3); Neutrophils # 2.6 K/mm3 (1.8-7.8); Neutrophils % 66.7 % (37.0-80.0); Platelet Count 249 K/mm3 (142-424); Red Blood Count 4.26 M/mm3 (4.60-6.20); Red Cell Distribution Width 13.8 % (11.5-17.5); White Blood Count 3.9 K/mm3 (4.8-10.8)
[2022-09-08 11:17] LABS: Coronavirus 19, PCR Detected (NotDetected)
== END ==
PROVIDERS: PCP Family Medicine; Visit Provider Family Medicine
DX: U07.1 COVID-19 (principal)
CPT/HCPCS: 36415; 71045; 85025; C9803; U0003; U0005

== ENCOUNTER 2023-05-20 14:00 | Outpatient (RCR) | payer MEDICARE, OTHER, SELFPAY ==
--- NOTE | 2023-04-22 10:09 | HMH.PTOPEV ---
PT Outpatient Evaluation Rehab PT Outpatient Evaluation Start: 04/22/23 09:52 Freq: Status: Active Protocol: Document 04/22/23 09:52 EVAN (Rec: 04/22/23 10:09 EVAN [id number]) E-signed By George Gomez, PT Outpatient Therapy Subjective History Subjective History Patient is a 73 year old male presenting to outpatient PT with reports of chronic LBP starting approx 2 year ago. Patient describes pain as intermittent spasms. Special tests indicate L upslip. Previous relief with chiro. Comorbidities include hx of B TKA, HTN and appendectomy. Chief Complaint Pain,Spasms,Stiff Symptom Type Ache Symptoms Relieved By Rest/Positioning,OTC Meds Symptoms Aggravated By Standing,Bending/Stooping, Physical Activity,Walking, Lifting Prior Functional Limitations None Current Functional Limitations Lifting,Standing,Walking, Bending/Stooping Symptom Description Intermittent Level of pain today (0-10) 0 Pain scale - at its best (0-10) 0 Pain scale - at its worst (0-10) 8 Lumbopelvic Eval Posture Thoracic Spine Posture Standing Position Increased Kyphosis Lumbar Spine Posture Standing Position Decreased Lordosis Palapation tenderness left Lumbar/Sacral Palpation Overall Comment L PSIS 2/4 Accessory Movement L2 bilateral L3 bilateral L4 bilateral L5 bilateral S1 bilateral Range of Motion Lumbar Spine Active Flexion Range of 78 Motion (degrees) Lumbar Spine Active Extension Range of 10 Motion (degrees) Left Lumbar Spine Lateral Flexion Active 20 Range of Motion (degrees) Right Lumbar Spine Lateral Flexion 17 Active Range of Motion (degrees) Lumbar Spine ROM Limitations Soft Tissue Tightness,Bony Restriction Manual Muscle Test Bilateral Knee Extension Strength Grade 5 Normal Knee Flexion Strength Grade 5 Normal Hip Flexion Strength Grade 5 Normal Extensor Hallucis Longus Strength Grade 5 Normal Ankle Dorsiflexion Strength Grade 5 Normal Gastronemius/Soleus Strength Grade 5 Normal Special Tests Hip Dominic (SHITAL) Test Positive Left,Positive Right Hip Manisha Test Positive Left,Positive Right Hip Piriformis Test Positive Left,Positive Right Sciatic Nerve Tension Test Negative Left,Negative Right Sacroi
== END 2023-05-20 15:00 | disposition home or self-care (01) ==
LOC: PT 14:00
PROVIDERS: PCP Family Medicine; Visit Provider Physician Assistant
DX: S39.012D Strain of muscle, fascia and tendon of lower back, subsequent encounter (principal)
CPT/HCPCS: 97010; 97014; 97110; 97140; 97163; 97530; G0283

== ENCOUNTER → 2023-10-15 12:35 | Outpatient (CLI) | payer MEDICARE, OTHER, SELFPAY ==
--- NOTE | 2023-10-15 12:39 | XR_ITS ---
FINAL REPORT CLINICAL HISTORY: LOW BACK PAIN FINDINGS: LUMBAR SPINE Five views demonstrate no acute fracture. There is a 50% compression deformity of T12. There is moderate anterior osteophyte formation at T11-12 and T12-L1. There is moderate loss of height at the L5-S1 level. There is no malalignment. IMPRESSION: 50% compression deformity of T12 with associated hypertrophic changes, probably chronic. Reviewed, Interpreted and Dictated by Eliazar Escalante MD Transcribed by Melissa Murillo Authenticated and [facility]
== END ==
LOC: RAD 12:36
PROVIDERS: PCP Family Medicine; Visit Provider Physician Assistant
DX: M54.50 Low back pain, unspecified (principal)
CPT/HCPCS: 72110

== ENCOUNTER 2023-11-30 08:03 | Outpatient (CLI) | payer MEDICARE, OTHER, SELFPAY ==
--- NOTE | 2023-11-30 | MR_ITS ---
FINAL REPORT CLINICAL HISTORY: LEFT LEG AND HIP PAIN LBP WORSE ON LEFT SIDE FINDINGS: Multiplanar MR imaging of the lumbar spine was performed without contrast. Motion artifact is identified on many of the images. On the sagittal T2-weighted images, disc degeneration is seen throughout. There is a moderate chronic T12 compression fracture. The vertebral alignment is normal. There is no evidence of fracture. The conus has an unremarkable appearance. L1-2: An annular bulge is present. Facet arthropathy and osteophytes are present. There is moderate bilateral neural foraminal narrowing. L2-3: An annular bulge is present. Facet arthropathy and osteophytes are present. There is moderate bilateral neural foraminal narrowing. L3-4: An annular bulge and facet arthropathy are present. There is a right foraminal disc protrusion with severe right and moderate left neural foraminal narrowing. L4-5: An annular bulge and facet arthropathy are present. There is a left foraminal disc protrusion severe bilateral neural foraminal narrowing. There is mild central canal stenosis with an AP diameter of the thecal sac of 7 mm. L5-S1: An annular bulge is present. Facet arthropathy and osteophytes are present. There are Modic type 1 and type 2 endplate changes. There is severe bilateral neural foraminal narrowing. IMPRESSION: Right foraminal disc protrusion at L3-4 with severe right neural foraminal narrowing. Left foraminal disc protrusion at L4-5 with severe bilateral neural foraminal narrowing and mild central canal stenosis. Multilevel degenerative disc disease and spondylosis. Reviewed, Interpreted and Dictated by Alexandre Nicole III, MD Transcribed by Melissa Murillo Authenticated and [facility]
--- NOTE | 2023-11-30 | MR_ITS ---
FINAL REPORT CLINICAL HISTORY: LEFT LEG AND HIP PAIN MID BACK PAIN WORSE ON LEFT SIDE FINDINGS: Multiplanar MR imaging of the thoracic spine was performed without contrast. On the sagittal T2-weighted images, disc degeneration is seen at multiple levels. There is a moderate chronic T12 compression fracture. There is kyphosis centered on T11. The vertebral alignment is normal. There is a small syrinx in the thoracic cord from T2-T8 measuring up to 4 mm in diameter. There is no evidence of significant canal stenosis or cord compression. On the axial images, mild disc bulges and small osteophytes are seen at multiple levels. No focal soft disc protrusion is identified. There is no evidence of significant canal stenosis or cord compression. No paraspinous soft tissue abnormality is identified. IMPRESSION: Multilevel mild degenerative disc disease and spondylosis. Moderate chronic T12 compression fracture. Small syrinx from T2-T8 measuring up to 4 mm in diameter. Reviewed, Interpreted and Dictated by Alexandre Nicole III, MD Transcribed by Melissa Murillo Authenticated and [facility]
== END 2023-11-30 23:59 ==
PROVIDERS: PCP Family Medicine; Visit Provider Physician Assistant
DX: M54.50 Low back pain, unspecified (principal); M54.6 Pain in thoracic spine; M54.2 Cervicalgia; M43.9 Deforming dorsopathy, unspecified
CPT/HCPCS: 72146; 72148; 76376

== ENCOUNTER 2024-01-07 14:00 | Outpatient (RCR) | payer MEDICARE, OTHER, SELFPAY ==
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
== END 2024-01-07 15:20 | disposition home or self-care (01) ==
LOC: PT 14:00
PROVIDERS: PCP Family Medicine; Visit Provider Family Medicine
DX: M51.26 Other intervertebral disc displacement, lumbar region (principal)
CPT/HCPCS: 97010; 97014; 97110; 97163; 97530; G0283

== ENCOUNTER 2025-01-15 16:32 | Outpatient (CLI) | payer MEDICARE, OTHER, SELFPAY ==
--- NOTE | 2025-01-15 16:36 | XR_ITS ---
PROCEDURE INFORMATION: Exam: XR Cervical Spine Exam date and time: 01/15/2025 4:37 PM Age: 74 years old Clinical indication: Radicular pain (radiculopathy); Cervical region; Additional info: Pain in right arm TECHNIQUE: Imaging protocol: Radiologic exam of the cervical spine. Views: 2 or 3 views. COMPARISON: CT CERVICAL SPINE WO CON 10/03/2021 12:40 PM FINDINGS: Bones/joints: Osteopenia. No gross fracture or malalignment. Mild disc space narrowing C5-C6 and C6-C7. Mild-moderate marginal spurring C5-C6 and C6-C7, and to a lesser degree at the other cervical levels. 7 mm bone island in the C7 spinous process unchanged. Rightward convexity thoracic scoliosis marginally visualized. Soft tissues: Prevertebral soft tissues are normal. Lungs: Visualized pulmonary apices are clear. Vasculature: Moderate-severe right and mild-moderate left calcific atherosclerosis in the carotid bulbs. IMPRESSION: 1. No acute findings. No gross change from 10/03/2021. 2. Osteopenia and chronic osteoarthritic changes.
== END 2025-01-15 23:59 | disposition home or self-care (01) ==
LOC: RAD 16:33
PROVIDERS: PCP Family Medicine; Visit Provider Family Medicine
DX: M79.601 Pain in right arm (principal); M54.12 Radiculopathy, cervical region
CPT/HCPCS: 72040

== ENCOUNTER 2025-06-13 19:01 | Emergency (ER) | payer MEDICARE, SELFPAY ==
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
[2025-06-13 19:11] VITALS: BP 114/60; PULSE 69; RESP 18; TEMP 36.5; O2SAT 95; BMI 24.5
--- NOTE | 2025-06-13 19:15 | XR_ITS ---
PROCEDURE INFORMATION: Exam: XR Right Forearm Exam date and time: 06/13/2025 7:20 PM Age: 75 years old Clinical indication: Injury or trauma; Fall; Blunt trauma (contusions or hematomas); Wrist; Right; Additional info: Wrist injury, fall TECHNIQUE: Imaging protocol: Radiologic exam of the right forearm. Views: 2 views. COMPARISON: CR XR WRIST RT MIN 3V 06/13/2025 7:19 PM FINDINGS: Bones/joints: Distal radius fracture redemonstrated. No other fracture evident. Advanced degenerative changes of the wrist and elbow noted. Soft tissues: Normal. IMPRESSION: Distal radius fracture.
--- NOTE | 2025-06-13 19:15 | XR_ITS ---
PROCEDURE INFORMATION: Exam: XR Right Wrist Exam date and time: 06/13/2025 7:19 PM Age: 75 years old Clinical indication: Injury or trauma; Fall; Blunt trauma (contusions or hematomas); Wrist; Right; Additional info: Wrist injury, fall TECHNIQUE: Imaging protocol: Radiologic exam of the right wrist. Views: 3 or more views. COMPARISON: CR [id number] XR hand RT min 3V 11/09/2018 11:35 AM FINDINGS: Bones/joints: Impacted nondisplaced fracture of the distal radial metaphysis. No other acute fracture identified. Advanced degenerative changes of the wrist most pronounced involving 1st carpometacarpal joint. Advanced degenerative changes of the partially included hand involving the 1st through 4th MCP joints. Soft tissues: Normal. IMPRESSION: Distal radius fracture.
--- NOTE | 2025-06-13 19:28 | PC.NURSE ---
patient to radiology via wheelchair with radiology asst
[2025-06-13 19:30] VITALS: O2SAT 100
--- OUTSIDE RECORDS SUMMARY | 2025-06-13 19:34 | XMS_ITS | Clinical Summary ---
Author Organization [facility] Address [address] [place] [address] Care Team Providers Care Credit Professional Name Role Phone Rogelio Jones MD Primary Care Provider + [phone] Allergies Active Allergy Reactions Criticality Noted Date Comments Memantine Other (See Comments) 11/23/2023 Pt felt odd Butorphanol Unknown - Low Severity 01/17/2021 Medications diclofenac (VOLTAREN) 75 MG EC tablet Take 1 tablet by mouth 2 (Two) Times a Day. 1 Active latanoprost (XALATAN) 0.005 % ophthalmic solution 1 Active triamcinolone (KENALOG) 0.1 % cream APPLY CREAM EXTERNALLY THREE TIMES DAILY NEEDED 1 Active ketoconazole (NIZORAL) 2 % shampoo APPLY TOPICALLY DIRECTED 2 Active metoprolol succinate XL (TOPROL-XL) 25 MG 24 hr tablet Take 1 tablet by mouth Daily. 2 Active donepezil (ARICEPT) 10 MG tablet Take 1 tablet by mouth Daily. 2 Active irbesartan-hyd rochlorothiazi de (AVALIDE) 300-12.5 MG tablet Take 1 tablet by mouth Every Morning. Active tamsulosin (FLOMAX) 0.4 MG capsule 24 hr capsule Take 1 capsule by mouth Daily. 4 Active QUEtiapine (SEROquel) 25 MG tablet Take 1 tablet by mouth Every Night for 30 days. 30 tablet 1 5 Active Additional Information Patient not taking.Reported on 05/28/2025 amLODIPine (NORVASC) 10 MG tablet Take 1 tablet by mouth Daily. 5 Active Cholecalcifero l (Vitamin D3) 1.25 MG (18557 UT) capsule Take 1 capsule by mouth 1 (One) Time Per Week. 5 Active memantine (NAMENDA) 10 MG tablet Take 1 tablet by mouth 2 (Two) Times a Day for 90 days. 180 tablet 1 5 025 Active divalproex (DEPAKOTE) [address] tablet Take 1 tablet by mouth Daily for 30 days. 30 tablet 3 5 025 Active amLODIPine-jessenia azepril (LOTREL 5-20) 5-20 MG per capsule Take 1 capsule by mouth Daily. 1 025 Discontinu ed(Discont inued by another clinician) memantine (NAMENDA) 10 MG tablet Take 1 tablet by mouth Daily for 90 days. 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 (Primary Dx) 05/28/2025 Travel 04/03/2025 10:00 AM EDT - 04/03/2025 11:59 PM EDT Hospital Encounter [facility] [address] [place] [address] Mayra Reza, MS [facility]-QUALITY ASSURANCE COORDINATOR Memory loss (Primary Dx) Discharge Disposition: Home or Self Care 03/20/2025 10:00 AM EDT - 03/20/2025 11:59 PM EDT Hospital Encounter [facility] [address] [place] [address] Mayra Reza, MS [facility]-QUALITY ASSURANCE COORDINATOR Memory loss (Primary Dx) Discharge Disposition: Home or Self Care 03/20/2025 Travel from Last 3 Months Immunizations Immunization Administration Dates Next Due FLUAD TRI 65YR+ 08/18/2024 Fluzone >6mos 07/21/2015 Fluzone High-Dose 65+YRS 07/15/2020,07/18,10/31/2018,08/31/2017, 016 Fluzone High-Dose 65+yrs 08/19/2023 Rabies IM 2 03/13/2014,03/06/2014,03/02/2014 ,02/27/2014 Rabies Immune Globulin 02/27/2014 Td, Not Adsorbed 06/30/2022 Tdap 11/25/2018,04/25/2018 Zostavax 06/15/2016 Family History Medical History Relation Name Comments Alcohol abuse Father [place] Migraines Father Aaron Stroke Father [place] Diabetes Mother Dementia Sister Tasha Alzheimers Memory loss Sister Tasha Relation Name Status Comments Father [place] Mother Sister Tasha Social History Tobacco Use Types Packs/Day Years [...] Orientation Straight 05/28/2025 10 :42 AM EDT Last Filed Vital Signs Vital Sign Reading Time Taken Comments Blood Pressure 126/78 05/28/2025 2:13 PM EDT Pulse 58 05/28/2025 2:13 PM EDT Temperature 36.3 C (97.3 F) 01/17/2021 10:59 AM EDT Respiratory Rate 16 04/22/2022 11:0 0 AM EDT Oxygen Saturation 96% 05/28/2025 2:13 PM EDT Inhaled Oxygen Concentration - - Weight 68 kg (150 lb) 05/28/2025 2:13 PM EDT nikhil f reported Height 170.2 cm (5' 7 ) 05/28/2025 2:13 PM EDT s elf reported Body Mass Index 23.49 05/28/2025 2:13 PM EDT Plan of Treatment Upcoming Encounters Date Type Department Care Team (Late st Contact Info) Description 12/24/2025 3:00 PM EDT Office Visit [facility] [address] [facility] [address] [place] [address] Landry Martinez MD [address] [facility] [address] [place] [address] Health Maintenance Due Date Last Done Comments COLOGUARD 02/14/1996 COLON CANCER SCREENING 5 YEA R SIGMOIDOSCOPY 02/14/1996 COLONOSCOPY 02/14/1996 COLORECTAL CANCER SCREENING 02/14/1996 CT COLONOGRAPHY 02/14/1996 FECAL OCCULT BLOOD TEST 02/14/1996 FIT Testing (1 year) 02/14/1996 Pneumococcal Vaccine 50+ (1 of 1 - PCV) 2001 ZOSTER VACCINE (2 of 3) 08/10/2016 06/15/2016 ANNUAL WELLNESS VISIT 01/17/2021 HEPATITIS C SCREENING 01/17/2021 COVID-19 Vaccine (5 - 2023-2 5 season) 2024 08/19/2023, 08/17/2021, 01/04/2021, Additional history exists QUALITY ASSURANCE COORDINATOR PLAN OF CARE 07/02/2025 04/03/2025, 03/2025, 07/21/2024 INFLUENZA VACCINE 07/18/2025 08/18/2024, , 07/15/2020, Additional history exists TDAP/TD VACCINES (4 - Td or Tdap) 06/30/2032 06/30/2022, 11/25/2018, 04/25/2018 Insurance MEDICARE A & B [facility] SU[facility] Care Teams Credit Professional Relationship Specialty Start Date End Date Rogelio Jones MD [address] [facility] [address] [facility] [address] [place] [address] PCP - General Family Medicine 11/27/24
--- OUTSIDE RECORDS SUMMARY | 2025-06-13 19:34 | XMS_ITS | Encounter Summary ---
Author Organization Healthcare Address [address] [place] [address] Care Team Providers Care Tafe Registrar Name Role Phone Christo Stevens MD Primary Care Provider + [phone] Daniela Mckinley MD Unavailable [phone] Daniela Mckinley MD Unavailable [phone] Encounter Details Date Type Department Care Team (Late st Contact Info) Description 11/24/2023 Community [facility] [address] [place] [address] Landry Martinez MD [address] [facility] [address] [place] [address] Memory loss (Primary Dx) Social History Tobacco Use Types Packs/Day Years Used Date Smoking Tobacco: Never Smokeless Tobacco: Never Alcohol Use Standard Drinks/Week Comments Not Currently 0 (1 standard drink = 0.6 oz pur e alcohol) Sex and Gender Information Value Date Recorded Sex Assigned at Not on file Legal Sex Male 6:20 PM EDT Gender Identity Not on file Sexual Orientation Not on file documented as of this encounter Plan of Treatment Upcoming Encounters Date Type Department Care Team (Late st Contact Info) Description 07/23/2025 11:00 AM EDT Consult [facility] [address] [place] [address] Anastacia Us MD [address] [facility] [address] [place] [address] documented as of this encounter Visit Diagnoses Diagnosis Memory loss- Primary documented in this encounter Additional Health Concerns Assessment Noted Time A fall risk assessment has been complete d for the patient 06/11/2021 10:40 AM EDT documented as of this encounter Care Teams Tafe Registrar Relationship Specialty Start Date End Date Christo Stevens MD [address] [place] [address] PCP - General 02/28/21 Daniela Mckinley MD [address] [place] [address] Service Attending Neurology 06/11/21 Daniela Mckinley MD [address] [place] [address] Service Attending Neurology 12/10/21 documented as of this encounter
--- OUTSIDE RECORDS SUMMARY | 2025-06-13 19:34 | XMS_ITS | Encounter Summary ---
Author Organization [facility] Address [address] [place] [address] Care Team Providers Care Distribution Center Administrator Name Role Phone Christo Stevens MD Primary Care Provider + [phone] Daniela Mckinley MD Unavailable [phone] Daniela Mckinley MD Unavailable +[phone] Encounter Details Date Type Department Care Team (Late st Contact Info) Description 01/19/2022 Community [facility] [address] [place] [address] Sabi Bonner PA [address] [facility] [address] [place] [address] Memory loss (Primary Dx) Social History Tobacco [...] Description 07/23/2025 11:00 AM EDT Consult [facility] [place] [facility] [address] [place] [address] Anastacia Us MD [address] [place] [address] documented as of this encounter Visit Diagnoses Diagnosis Memory loss- Primary documented in this encounter Additional Health Concerns Assessment Noted Time A fall risk assessment has been complete d for the patient 06/11/2021 10:40 AM EDT documented as of this encounter Care Teams Distribution Center Administrator Relationship Specialty Start Date End Date Christo Stevens MD [address] [place], [place] [address] PCP - General 02/28/21 Daniela Mckinley MD [address] [place] [address] Service Attending Neurology 06/11/21 Daniela Mckinley MD [address] [place] [address] Service Attending Neurology 12/10/21 documented as of this encounter
--- OUTSIDE RECORDS SUMMARY | 2025-06-13 19:34 | XMS_ITS | Encounter Summary ---
Author Organization [facility] Address [address] [place] [address] Care Team Providers Care Sed Middle School Teacher Name Role Phone Rogelio Jones MD Primary Care Provider + [phone] Encounter Details Date Type Department Care Team (Latest Contact Info) Description 05/28/2025 Travel Social History Tobacco Use Types Packs/Day Years Used Date Smoking Tobacco: Never Passive Smoke Exposure: Never Smokeless Tobacco: Never Alcohol Use Standard Drinks/Week Comments Never 0 (1 standard drink = 0.6 oz pur e alcohol) AUDIT-C Answer Date Recorded Q1: How often do you have a drink containing alc ohol? Never 01/17/2021 Average Number of Drinks Not on file Frequency of Binge Drinking Not on file 11/2020 Sex and Gender Information Value Date Recorded Sex Assigned at Male 05/28/2025 10:42 AM EDT Legal Sex Male 8:17 AM EDT Gender Identity Not on file Sexual Orientation Straight 05/28/2025 10 :42 AM EDT documented as of this encounter Plan of Treatment Upcoming Encounters Date Type Department Care Team (Late st Contact Info) Description 12/24/2025 3:00 PM EDT Office Visit [facility] [address] [facility] [address] [place] [address] Landry Martinez MD [address] [facility] [address] [place] [address] documented as of this encounter Visit Diagnoses Not on filedocumented in this encounter Care Teams Sed [employer] Teacher Relationship Specialty Start Date End Date Rogelio Jones MD [address] [place] [address] [place] [address] PCP - General Family Medicine 11/27/24 documented as of this encounter
--- OUTSIDE RECORDS SUMMARY | 2025-06-13 19:34 | XMS_ITS | Clinical Summary ---
Author Organization [facility] Address [address] [place] [address] Phone Care Team Providers Care Life Science Research Assistant Name Role Phone Jaswinder ESCOBAR, Lane Vyas [phone] Conditions or Problems Problem Name Problem Code Onset Date Status Entry Date Provider Comment Standard Description Annotate Inguinal lymphadenopa thy, right 480770293 (SNOMED CT) 11/26 Active 11/26 [address] San MD. 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 (ICD-10-CM ) Active Swati W Acquired absence of right knee Infection and inflammatory reaction due to internal right knee prosthesis, initial encounter T84.53xA (ICD-10-CM ) Active Swati W Infection and inflammatory reaction due to internal right knee prosthesis, initial encounter SERRATIA B96.89 (ICD-10-CM ) Inactive Swati W Other specified bacterial agents as the cause of diseases classified elsewhere Medications Medication Instructions Start Date Stop Date Generic Name NDC Provider INVANZ 1 GM INTRAVENOUS SOLUTION RECONSTITUTED 1gm IV Q24hrs/ OPAT ERTAPENEM SODIUM 02784667465 Stephanie S AMITRIPTYLINE HCL 150 MG TABS take 1 tablet daily AMITRIPTYLINE HCL 09376383421 Nohemi Juan A TREXIMET 85-500 MG TABS as needed SUMATRIPTAN-NAPR OXEN SODIUM 35903503425 Nohemi A BENAZEPRIL HCL 20 MG TABS take 1 tablet daily BENAZEPRIL HCL [id number] Nohemi A FORTAZ (IV) FORTAZ (IV) Nohemi A FORTAZ (IV) FORTAZ (IV) Nohemi A INVANZ 1 GM INTRAVENOUS SOLUTION RECONSTITUTED 1gm IV Q24hrs/ OPAT ERTAPENEM SODIUM [id number] Neelima Velarde RN Medications Administered No information available. Allergies, Adverse Reactions, Alerts Allergy Name Reaction Description Start Date Severity Statu s Provider STADOL Moderate Active Alexandre S Results Date Name Value Unit Range Flag Description Lab Report: CBC w Auto Diff ZZ-GE-unk 0.0 GE use only - for LinkLogic import when terms are not otherwise specified Clinical Lists Update: [facility] [place] [facility] secmsg Patient's prefered method of contact Lab Report: CBC w Auto Diff IMM GRANU % 0.2 % 0.0-0.6 N Immature granulocytes/100 leukocytes in Blood BASOPHIL % 0.7 % 0.0-1.0 N Basophils/ 100 leukocytes in Blood by Manual count % EOS AUTO 3.5 % 0.0-3.0 H Eosinophil s/100 leukocytes in Blood by Automated count MONOCYTE BF 8.7 % 0.0-12.0 N monocyte s as percent of body fluid leukocytes LYMPHOCY BF 35.1 % 24.0-44.0 N lymphoc ytes as percent of body fluid leukocytes NEUTROP BF 51.8 % 41.0-71.0 N Neutroph ils/100 leukocytes in Body fluid BASOABSOLMAN 0.03 K/MCL {Cells}/u L 0.00-0.20 N basophils, absolute, manual EOS ABSLT 0.15 10*3/uL 0.10-0.30 N Eosinophi ls [#/volume] in Blood MONOCYTABMAN 0.37 K/MCL {Cells}/u L 0.00-1.00 N monocytes, absolute, manual LYMPHSABSMAN 1.49 K/MCL {Cells}/u L 0.60-4.80 N lymphocytes, absolute, manual ABS NEUTROPH 2.19 10*3/uL 1.50-8.30 N Neutro phils [#/volume] in Blood PLATELETS 209 10*3/mm3 150-450 N Platelets [#/volume] in Blood by Automated count RDW_ 15.9 11.3-14.5 H RDW, no uni ts MCHC 32.1 G/DL 32.0-36.0 N MCHC [Mass/ volume] by Automated count MCH 26.6 pg 27.0-31.0 L MCH [Entiti c mass] by Automated count MCV 82.7 fL 80.0-99.0 N MCV [Entiti c volume] by Automated count HCT 36.4 % 38.9-50.9 L Hematocrit [Volume Fraction] of Blood by Automated count HGB 11.7 g/dL 13.1-17.5 L Hemoglobin [Mass/volume] in Blood RBC 4.40 M/MCL 10*6/mm3 4.20-5.76 N Erythro cytes [#/volume] in Blood by Automated count WBC 4.24 10*3/mm3 3.50-10.8 0 N Leukocytes [#/volume] in Blood by Automated count Lab Report: Comprehensive Me tabolic Panel ANIONGAP 4 mmol/L 3-11 N anion gap, s carlos GFRC 100 mL/min/1. 73m2 Glomerular Filtration Rate Calculation ALBUMIN 4.1 g/dL 3.2-4.8 N Albumin [Mass/volume] in Serum or Plasma PROTEIN, TOT 7.1 g/dL 5.7-8.2 N Protein [Mass/volume] in Serum or Plasma BILI TOTAL 0.2 mg/dL 0.3-1.2 L Bilirubin. total [Mass/volume] in Serum or Plasma SGPT (ALT) 17 U/L 7-40 N Alanine aminotransferase [Enzymatic activity/volume] in Serum or Plasma SGOT (AST) 17 U/L 0-33 N Aspartate aminotransferase [Enzymatic activity/volume] in Serum or Plasma ALK PHOS 117 U/L 25-100 H Alkaline rabia sphatase [Enzymatic activity/volume] in Blood CALCIUM 9.4 mg/dL 8.7-10.4 N Calcium [Moles/volume] in Serum or Plasma CO2 33 mmol/L 20-31 H Carbon dioxid e, total [Moles/volume] in Venous blood CHLORIDE 103 mmol/L 99-109 N Chloride [Moles/volume] in Serum or Plasma POTASSIUM 5.0 mmol/L 3.5-5.5 N Potassium [Moles/volume] in Serum or Plasma SODIUM 140 mmol/L 132-146 N Sodium [Moles/volume] in Serum or Plasma CREATININE 0.9 mg/dL 0.6-1.3 N Creatinine [Mass/volume] in Serum or Plasma BUN 8 mg/dL 9-23 L Urea nitrogen [Mass/volume] in Serum or Plasma GLUCOSE SER 104 mg/dL 70-100 H Glucose [Mass/volume] in Serum or Plasma Lab Report: C-Reactive Prote in CRPCARDRISK 0.3 mg/L 0.000-10. 0 N C reactive protein [Mass/volume] in Serum or Plasma Lab Report: ESR (Sed Rate) ESR 5 mm/h 0-20 N Erythrocyte sedimentation rate by Westergren method Office Visit: Room #4 MEDS REVIEW Done Documenta tion of current medications (procedure) ORALTOBACUSE Never Tobacco smoking status SMOK STATUS Never smoker Tobacco smoking status Plan of Care Type Date Detail Pending order Discontinue IV a ntibiotics Pending order PICC Removal Pending order Continue IV anti biotics Pending order Weekly PICC Line Care Pending order Ertapenem Pending order Continue IV anti biotics Pending order Weekly PICC Line Care Pending order Ertapenem Pending order Continue IV anti biotics Pending order Ertapenem Pending order PICC Dressing Ch nona Pending order Continue IV anti biotics Pending order Ertapenem Pending order PICC Dressing Ch nona Pending order Stat Weekly Labs Patient education Ertapenem%20(I njection)%20(Injectable) Procedures Code Procedure Name Date Entry Date CPT-DC Discontinue IV antibiotics 2 CPT-PICREM PICC Removal CPT-ca Continue IV antibiotics 2014 CPT-wpc Weekly PICC Line Care 10/21 CPT-J1335 Ertapenem CPT-ca Continue IV antibiotics 2014 CPT-wpc Weekly PICC Line Care CPT-J1335 Ertapenem CPT-ca Continue IV antibiotics 2014 CPT-J1335 Ertapenem CPT-pdc PICC Dressing Change CPT-ca Continue IV antibiotics 2014 CPT-J1335 Ertapenem CPT-pdc PICC Dressing Change CPT- stat weekly Stat Weekly Labs Vital Signs Date Name Value Unit Description BMI (Body Mass Index) 23.40 kg/m2 Bod y Mass Index (Ratio) Body Temperature 97.4 [degF] temperat ure E&M BP Diastolic 82 mm[Hg] blood pressu re, diastolic BP Systolic 130 mm[Hg] blood pressur e, systolic Heart Rate 80 /min pulse rate Respiratory Rate 12 /min respirat ory rate E&M Weight Measured 145 [lb_av] weight E& M Weight Measured 145 [lb_av] weight E& M Height 66 [in_us] height E&M Immunizations Vaccine Administration Date Standard Description CVX Co de Dose Afluria Intramuscular Suspension Afluria Intramuscular Suspension 141 Unknown Advance Directives No information available.
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
--- OUTSIDE RECORDS SUMMARY | 2025-06-13 19:34 | XMS_ITS | Clinical Summary ---
Author Organization Healthcare Address [address] [place] [address] Care Team Providers Care Scheduler Maintenance Name Role Phone Christo Stevens MD Primary Care Provider [phone] Daniela Mckinley MD Unavailable [phone] Daniela Mckinley MD Unavailable [phone] Allergies No known active allergies Medications amitriptyline (Elavil) 25 MG tablet Take 100 mg by mouth 1 (one) time each day. 1 Active amLODIPine-ever zepril (Lotrel) 5-20 MG capsule Take 1 capsule by mouth 2 (two) times a day. 1 Active diclofenac (Voltaren) 75 MG EC tablet 9 Active donepezil (Aricept) 5 MG tablet 1 Active latanoprost (Xalatan) 0.005 % ophthalmic solution INSTILL 1 DROP INTO EACH EYE IN THE EVENING 1 Active traMADol (Ultram) 50 MG tablet Take by mouth. 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 Immunizations Immunization Administration Dates Next Due Rabies - IM Fibroblast Culture 03/13/2014,2013 Rabies Immune Globulin 02/27/2014 Rabies, intramuscular 03/13/2014,03/06/2014,02/15,02/27/2014 Tdap 11/25/2018 Family History Medical History Relation Name Comments Arthritis Father Cardiac disorder Father Arthritis Mother Cardiac disorder Mother Alzheimer's disease Other sister Thyroid disease Sister Relation Name Status Comments Father Mother Other sister Sister Social History Tobacco Use Types Packs/Day Years Used Date Smoking Tobacco: Never Smokeless Tobacco: Never Alcohol Use Standard Drinks/Week Comments Not Currently 0 (1 standard drink = 0.6 oz pur e alcohol) Sex and Gender Information Value Date Recorded Sex Assigned at Not on file Legal Sex Male 6:20 PM EDT Gender Identity Not on file Sexual Orientation Not on file Last Filed Vital Signs Vital Sign Reading Time Taken Comments Blood Pressure 140/80 12/10/2021 11:08 AM EST Pulse 59 12/10/2021 11:08 AM EST Temperature 36.6 C (97.8 F) 06/30/2019 10:38 AM EDT Respiratory Rate 16 06/11/2021 10:32 AM EDT Oxygen Saturation 98% 12/10/2021 11:08 AM EST Inhaled Oxygen Concentration - - Weight 68 kg (150 lb) 12/10/2021 11:08 AM EST Height 167.6 cm (5' 6 ) 12/10/2021 11:08 AM EST Body Mass Index 24.21 12/10/2021 11:08 AM EST Plan of Treatment Upcoming Encounters Date Type Department Care Team (Late st Contact Info) Description 07/23/2025 11:00 AM EDT Consult [facility] [place] - [facility] [address] [place] [address] Anastacia Us MD [address] [place] [address] Health Maintenance Due Date Last Done Comments [facility]-Depression Screening 1950 [facility]-Hepatitis C Screening 1950 [facility]-Medicare Annual Wellness (AWV) 1950 [facility]-/Child/Adol SDOH Screenings 1950 [facility]- SDOH Screenings 1969 [facility]-Adult SDOH Screenings 1969 CT Colonography 02/14/1996 Colonoscopy 02/14/1996 FIT-DNA 02/14/1996 FIT 02/14/1996 FOBT 02/14/1996 Sigmoidoscopy 02/14/1996 [facility]-Colorectal Cancer Screening 02/14/1996 [facility]-Pneumococcal Vaccine: 50+ Years (1 of 1 - PCV) 2001 [facility]-Zoster Vaccines (2 of 3) 08/10/2016 06/15/2016 [id number] Vaccine ( season) 2024 08/19/2023, 08/17/2021, 01/04/2021, Additional history exists [facility]-Influenza Vaccine (#1) 06/18/202508/18, 08/19/2023, 07/15/2020, Additional history exists [facility]-RSV Vaccine: 60+ Years or (1 - 1-dose 75+ series) 2026 [facility]-DTaP,Tdap,and Td Vaccines (4 - Td or Tdap) 06/30/2032 06/30/2022, 11/25/2018, 04/25/2018 HPV Vaccines Aged Out No longer eligi ble based on patient's age to complete this topic [facility]-HIB Vaccines Aged Out No longer e ligible based on patient's age to complete this topic [facility]-Hepatitis A Vaccines Aged Out No longer eligible based on patient's age to complete this topic [facility]-IPV Vaccines Aged Out No longer e ligible based on patient's age to complete this topic [facility]Y-Rotavirus Vaccines Aged Out No lo nger eligible based on patient's age to complete this topic Insurance MEDICARE [employer] Care Teams Scheduler Maintenance Relationship Specialty Start Date End Date Christo Stevens MD [address] [place] [address] PCP - General 02/28/21 Daniela Mckinley MD [address] [place] [address] Service Attending Neurology 06/11/21 Daniela Mckinley MD [address] [place] [address] Service Attending Neurology 12/10/21
--- NOTE | 2025-06-13 20:04 | ED_ITS ---
<Statement entered by Rafael Rodgers DO - 06/14/25 09:06> I was consulted by the FER, and we discussed the complexity of problems being addressed. I approved the treatment and management plan for this patient's care in the emergency department, thus performing a substantive portion of the medical decision making. Rafael Rodgers DO Discharge Plan Disposition Patient Disposition: Home, Self-Care Condition: Good Prescriptions Prescriptions: No Action aspirin [Aspir-81] 81 MG Tablet. 81 mg PO DAILY Referrals Follow up/Referrals: Rogelio Jones MD [Primary Care Provider, Medical] - See instructions Avelino Faulkner DO [Staff Physician, Orthopedics] - See instructions Activity Restrictions/Add. Instructions Additional Instructions/Restrictions: You were evaluated on an emergency basis. It is very important that you follow- up with your primary care provider and any specialist who we discussed within the next 2 days in order to better assess your health more comprehensively. For example, incidental findings on imaging or laboratory results that were performed today may be discovered, which do not require immediate medical care, but may impact your health in the future. If your symptoms worsen or persist, please return to the emergency department immediately for reassessment. Take all medications as prescribed. In queue for allowing me to participate in your health care, and I hope you feel better soon. Clinical Impressions Clinical Impression: Closed fracture of right distal radius Instructions Patient Instructions: DI for Distal Radius Fracture Print Language Print Language: Frisian Discharge ED Provider: Rafael Rodgers General Adult HPI General Chief complaint: Fall Stated complaint: AO 06/13/25 Injury right arm Time Seen by Provider: 06/13/25 19:18 Mode of Arrival: Ambulatory Source of Information: Patient and Relative Description of Symptoms (Recalled from ER Triage Doc. by RN): patient presents to the Ed for right arm injury. Patient reports falling out of bed, no loss of consciousness. Patient did hit his head. patient is not in blood thinners. History of Present Illness HPI narrative: 75-year-old male presents emergency department complaints of pain to his right wrist. States he was getting out of bed this morning when he slipped and fell injuring his wrist. He has tried taking [id number]-[id number] Tylenol and ice packs for pain relief today but states is continued to hurt. He reports he did break this wrist previously as a child. Related Data Home Medications ?Medication ?Instructions ?Recorded ?Confirmed benazepril 10 mg tablet 20 mg PO ONCE Hypertension 0 11/26/17 11/21/20 latanoprost 0.005 % eye drops 2 drops ophthalmic (eye) DAILY . 11/26/17 11/21/20 22 days aspirin 81 mg tablet,delayed 81 mg PO DAILY . 04/25/18 11/21/20 release (Aspir-) Allergies Allergy/AdvReac Type Severity Reaction Status Date / Time butorphanol (From STADOL) Allergy Unknown Verified 06/30/22 15:49 [facility] Disclaimer: The information contained in this section may have been updated after the patient was seen, as this information can be updated by other users. Social History Smoking Status: Never smoker second hand exposure: No alcohol intake: never current occupational status: retired Travel in the last 8 weeks?: None household members: spouse Have you lived/traveled outside US in past 30 days?: No Contact w/someone who lives/traveled outside US past 30 days?: No Exposure to someone with infectious disease in past 14 days?: No Do you have a fever (greater than 100.4 F or 38 C)?: No Have you tested positive for COVID-19?: No Exposed to someone with COVID-19 in past 14 days?: No Do you have a sore throat?: No Do you have a cough?: No Do you have any weakness?: No Do you have any diarrhea?: No Are you experiencing any unusual bleeding?: No Do you have any muscle aches/pain?: No Do you have any abdominal pain?: No Are you experiencing loss of taste or smell?: No Other Medical History Have you received the Flu Vaccine for this season: Yes Have you received the Pneumonia Vaccine: Yes ROS Obtained: Yes All systems reviewed & no additional complaints except as documented Musculoskeletal Musculoskeletal: Reports arthralgias Physical Exam Narrative Physical exam: General: Awake, aware, in no acute distress HEENT: Normocephalic, no evidence of trauma CV: RRR, no murmurs, rubs, or gallops Pulm: CTA bilaterally with no rhonchi, rales, wheezes ABD: Nontender, no swelling, guarding, or rebound tenderness Psych, appropriate mood and affect Musculoskeletal: Patient with intact sensation and 5 out of 5 strength in all extremities however he does have decreased range of motion due to pain in his right wrist. He has deformity noted. There is mild edema noted. Patient with 2+ pulses in bilateral upper extremities. General General appearance: alert Respiratory Respiratory exam: Present normal lung sounds bilaterally Cardiovascular Cardiovascular exam: Present regular rate Neurological Exam Neurological exam: Present alert Medical Decision Making Medical Records Screening: Per USPSTF and CDC recommendations, given the prevalence of disease in our region, it is our hospital?s policy to screen for HIV and viral Hepatitis for all patients aged 18 and over and those with ongoing risk factors. Aric Inquiry Pt receiving controlled substance: No Vital Signs: 06/13/25 19:11 06/13/25 19:30 Temperature 97.7 F Temperature Source Temporal Artery Scan Pulse Rate [Right Radial] 69 Respiratory Rate 18 Blood Pressure [Right Arm] 114/60 Blood Pressure Mean [Right Arm] 78 Blood Pressure Source [Right Arm] Automatic Cuff Blood Pressure Position [Right Arm] Sitting 02 Sat by Pulse Oximetry 95 100 Oxygen Delivery Method Room Air Room Air Orders (Tests/Meds): ED MEDICATIONS Discontinued Medications Generic Name Dose Route Start Last Admin Trade Name Kacie PRN Reason Stop Dose Admin Ibuprofen 600 mg 06/13/25 20:10 06/13/25 20:27 Ibuprofen 200mg/10ml Susp Udc PO 06/13/25 20:11 Not Given ONCE ONE Ibuprofen 600 mg 06/13/25 20:26 06/13/25 20:28 Ibuprofen 600 Mg Tablet PO 06/13/25 20:27 600 mg ONCE ONE Administration ORDERS Category Date Time Status Wrist XR right minimum 3 views [XR wrist RT min 3V] Exams 06/13/25 19:15 Completed Stat XR forearm RT 2V Stat Exams 06/13/25 19:15 Completed Medical Decision Narrative: Initial impression of presenting illness: 75-year-old male presents the emergency department with complaints of pain to his right wrist after falling out of bed earlier this morning. He reports trying Tylenol and ice packs without relief of symptoms prior to arrival. Differential diagnosis includes but is not limited to: Fracture, dislocation, contusion, abrasion Patient arrives hemodynamically stable, afebrile, without respiratory distress with vital signs interpreted by myself. Initial physical exam reveals tenderness on palpation of patient's right wrist with decreased range of motion. Patient is intact with 2+ pulses. Minimal swelling noted to patient's right wrist. Rest of exam is unremarkable Initial diagnostic plan: Ice pack for swelling, ibuprofen for pain, x-ray Results from initial plan were reviewed and interpreted by myself, pertinent positives include: X-ray show a distal radial fracture. Interventions in the ED: Patient was placed in sugar-tong splint with sling. Patient was also given ibuprofen for pain and ice for swelling Patient was made aware of the results and the findings, upon reevaluation patient has remained stable throughout stay, symptoms remained stable. Upon re evaluation patient is resting comfortably in bed with no signs of acute distress remains neurovascularly intact post splint application. Disposition: Reviewed findings today's workup with patient and informed that he does have a distal radius fracture. Informed him that he is to give his splint clean and dry. Informed him to use the sling for comfort as well. Also recommended he continue with Tylenol ibuprofen as needed for pain control. In addition I informed patient to monitor his fingers for signs of neurovascular compromise such as color changes, delayed capillary refill, swelling, worsening pain. Informed him if the symptoms should arise to remove the cast and return to the emergency department for evaluation. Advised patient that we will give him contact information for orthopedic provider Dr. Faulkner and recommended he contact them to schedule outpatient follow-up. Patient made aware of findings and had a detailed discussion with symptomatic care and return precautions, patient voiced understanding. Procedures Orthopedic Splinting/Casting Injury #1: Side: right Upper Extremity Injury Location: wrist Upper Extremity Immobilizer: sugar tong splint and sling Post Cast/Splinting Neuro Status: intact Post Cast/Splinting Vasc Status: intact Critical Care Critical Care Time Critical Care Time: No
[2025-06-13] MEDS: IBUPROFEN 600 MG TABLET PO (20:28)
[2025-06-13 21:21] VITALS: BP 116/62; PULSE 69; RESP 16; TEMP 36.5; O2SAT 95
== END 2025-06-13 21:44 | disposition home or self-care (01) ==
PROVIDERS: Emergency Provider Student in an Organized Health Care Education/Training Program; PCP Family Medicine
DX: S52.501A Unspecified fracture of the lower end of right radius, initial encounter for closed fracture (principal); W01.10XA Fall on same level from slipping, tripping and stumbling with subsequent striking against unspecified object, initial encounter
CPT/HCPCS: 29125; 73090; 73110; 99284

== ENCOUNTER 2025-06-29 10:17 | Outpatient (CLI) | payer MEDICARE, SELFPAY ==
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
--- OUTSIDE RECORDS SUMMARY | 2025-05-28 14:15 | XMS_ITS | Encounter Summary ---
Author Organization [facility] Address [address] [place] [address] Care Team Providers Care Caddymaster Name Role Phone Rogelio Jones MD Primary Care Provider + [phone] Reason for Visit * Reason Comments Alzheimer's Disease Encounter Details Date Type Department Care Team (Late st Contact Info) Description 05/28/2025 2:15 PM EDT Office Visit [facility] [address] [facility] [address] [place] [address] Landry Martinez MD [address] [facility] [address] [place] [address] Mild late onset Alzheimer's dementia [...] He reports balance impairment. Initial visit with wa: 11/23/2023: He is in clinic for follow-up [...] , Rfl: Cholecalciferol (Vitamin D3) 1.25 MG (41569 UT) capsule, Take 1 capsule by mouth [...] 2+ bilaterally. Babinski: Negative bilaterally. Co-ordination: Normal dntdru-uw-aand, heel to clark B/L. Rhomberg: Negative. 

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
--- NOTE | 2025-06-29 10:20 | XR_ITS ---
FINAL REPORT CLINICAL HISTORY: right wrist fx f/u FINDINGS: Right wrist 3 VIEWS FINDINGS: 3 views show transverse impacted fracture of the distal radius. No periosteal reaction is present. There is mild cortical irregularity along the dorsal aspect which would indicate incomplete fracture healing. Moderate to severe degenerative changes are seen of the 1st carpal metacarpal joint. Degenerative changes are also noted of the carpus and radiocarpal joint. No new fracture is seen. IMPRESSION: Mildly impacted healing distal radial fracture Authenticated and ERN
--- OUTSIDE RECORDS SUMMARY | 2025-06-29 10:20 | XMS_ITS | Encounter Summary ---
Author Organization Healthcare Address [address] [place] [address] Care Team Providers Care Hairspring Staker Name Role Phone Christo Stevens MD Primary Care Provider + [phone] Daniela Mckinley MD Unavailable [phone] Daniela Mckinley MD Unavailable [phone] Encounter Details Date Type Department Care Team (Late st Contact Info) Description 11/24/2023 Community [facility] Community Practice [address] [place] [address] Landry Martinez MD [address] [facility] [address] [place] [address] Memory loss (Primary Dx) Social [...] Description 07/23/2025 11:00 AM EDT Consult [facility] [place] - [facility] [address] [place] [address] Anastacia Us MD [address] [facility] [address] [place] [address] documented as of this encounter Visit Diagnoses Diagnosis Memory loss- Primary documented in this encounter Additional Health Concerns Assessment Noted Time A fall risk assessment has been complete d for the patient 06/11/2021 10:40 AM EDT documented as of this encounter Care Teams Hairspring Staker Relationship Specialty Start Date End Date Christo Stevens MD [address] [place] [address] PCP - General 02/28/21 Daniela Mckinley MD [address] [place] [address] Service Attending Neurology 06/11/21 Danieal Mckinley MD [address] [place] [address] Service Attending Neurology 12/10/21 documented as of this encounter
--- OUTSIDE RECORDS SUMMARY | 2025-06-29 10:20 | XMS_ITS | Encounter Summary ---
Author Organization Healthcare Address [address] [place] [address] Care Team Providers Care Environmental Compliance Engineer Name Role Phone Christo Stevens MD Primary Care Provider + [phone] Daniela Mckinley MD Unavailable [phone] Daniela Mckinley MD Unavailable [phone] Encounter Details Date Type Department Care Team (Late st Contact Info) Description 01/19/2022 Community [facility] Community Practice [address] [place] [address] Sabi Bonner PA [address] [facility] [address] [place] [address] Memory loss (Primary Dx) Social History Tobacco [...] Description 07/23/2025 11:00 AM EDT Consult [facility] [place] - [facility] [address] [place] [address] Anastacia Us MD [address] [place] [address] documented as of this encounter Visit Diagnoses Diagnosis Memory loss- Primary documented in this encounter Additional Health Concerns Assessment Noted Time A fall risk assessment has been complete d for the patient 06/11/2021 10:40 AM EDT documented as of this encounter Care Teams Environmental Compliance Engineer Relationship Specialty Start Date End Date Christo Stevens MD [address] [place], [place] [address] PCP - General 02/28/21 Daniela Mckinley MD [address] [place] [address] Service Attending Neurology 06/11/21 Daniela Mckinley MD [address] [place] [address] Service Attending Neurology 12/10/21 documented as of this encounter
--- OUTSIDE RECORDS SUMMARY | 2025-06-29 10:20 | XMS_ITS | Clinical Summary ---
Author Organization Healthcare Address [address] [place] [address] Care Team Providers Care Circle Edger Name Role Phone Christo Stevens MD Primary Care Provider [phone] Daniela Mckinley MD Unavailable [phone] Daniela Mckinley MD Unavailable Allergies No known active allergies Medications amitriptyline [...] Description 07/23/2025 11:00 AM EDT Consult [facility] [place] - [facility] [address] [place] [address] Anastacia Us MD [address] [place] [address] Health Maintenance Due Date Last Done Comments [facility]-Depression Screening 1950 [facility]-Hepatitis C Screening 1950 [facility]-Medicare Annual Wellness (AWV) 1950 [facility]-Infant/Child/Adol SDOH Screenings 1950 [facility]- SDOH Screenings 1969 [facility]-Adult SDOH Screenings 1969 CT Colonography 02/14/1996 Colonoscopy 02/14/1996 FIT-DNA 02/14/1996 FIT 02/14/1996 FOBT 02/14/1996 Sigmoidoscopy 02/14/1996 [facility]Y-Colorectal Cancer Screening 02/14/1996 [facility]Y-Pneumococcal Vaccine: 50+ Years (1 of 1 - PCV) 2001 [facility]Y-Zoster Vaccines (2 of 3) 08/10/2016 06/15/2016 [id number] Vaccine (2024- season) 2025 08/19/2023, 08/17/2021, 01/04/2021, Additional history exists [facility]Y-Influenza [...] age to complete this topic [place] [address] [employer] Care Teams Circle Edger Relationship Specialty Start Date End Date Christo Stevens MD [address] [place] [address] PCP - General 02/28/21 Daniela Mckinley MD [address] [place] [address] Service Attending Neurology 06/11/21 Daniela Mckinley MD [address] [place] [address] Service Attending Neurology 12/10/21
--- OUTSIDE RECORDS SUMMARY | 2025-06-29 10:21 | XMS_ITS | Clinical Summary ---
Author Organization [facility] Address [address] [place] [address] Care Team Providers Care Sap Technical Architect Name Role Phone Rogelio Jones MD Primary Care Provider + [phone] Allergies Active Allergy Reactions Criticality Noted Date [...] 1 tablet by mouth Daily. 2 Active irbesartan-hydr ochlorothiazide (AVALIDE) 300-12.5 MG tablet Take 1 tablet [...] 1 tablet by mouth Daily. 5 Active Cholecalciferol (Vitamin D3) 1.25 MG (96557 UT) capsule Take 1 capsule by mouth 1 (One) Time Per Week. 5 Active memantine (NAMENDA) 10 MG tablet Take 1 tablet by mouth 2 (Two) Times a Day for 90 days. 180 tablet 1 5 08/26/20 25 Active divalproex (DEPAKOTE) [address] tablet Take 1 tablet by mouth Daily for 30 days. 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 (Primary Dx) 05/28/2025 Travel 04/03/2025 10:00 AM EDT - 04/03/2025 11:59 PM EDT Hospital Encounter [facility] [address] [place] [address] Mayra Reza MS [facility] Memory loss (Primary Dx) Discharge Disposition: Home or Self Care from Last 3 Months Immunizations Immunization Administration Dates Next Due FLUAD TRI 65YR+ 08/18/2024 Fluzone >6mos 07/21/2015 Fluzone High-Dose 65+YRS 07/15/2020,07/18,10/31/2018,08/31/2017, 016 Fluzone High-Dose 65+yrs 08/19/2023 Rabies IM 2 03/13/2014,03/06/2014,03/02/2014 ,02/27/2014 Rabies Immune Globulin 02/27/2014 Td, Not Adsorbed 06/30/2022 Tdap 11/25/2018,04/25/2018 Zostavax 06/15/2016 Family History Medical History Relation Name Comments Alcohol abuse Father [place] Migraines Father Aaron Stroke Father [place] Diabetes Mother Dementia Sister Tasha Alzheimers Memory loss Sister Tasha Relation Name Status Comments Father Aaron Mother Sister Tasha Social History Tobacco Use [...] 12/24/2025 3:00 PM EDT Office Visit [facility] [address] [facility] [address] [place] [address] Landry Martinez MD [address] [facility] [address] [place] [address] Health Maintenance Due Date Last [...] C SCREENING 01/17/2021 COVID-19 Vaccine (5 - 2024-2 6 season) 2025 08/19/2023, 08/17/2021, 01/04/2021, Additional history exists [facility] PLAN OF CARE 07/02/2025 04/03/2025, 03/2025, 07/21/2024 INFLUENZA VACCINE 07/18/2025 08/18/2024, , 07/15/2020, Additional history exists TDAP/TD VACCINES (4 - Td or Tdap) 06/30/2032 06/30/2022, 11/25/2018, 04/25/2018 Insurance MEDICARE A & B [facility] Care Teams Sap Technical Architect Relationship Specialty Start Date End Date Rogelio Jones MD [address] [facility] [address] [facility] [address] [place] [address] PCP - General Family Medicine 11/27/24
--- OUTSIDE RECORDS SUMMARY | 2025-06-29 10:21 | XMS_ITS | Clinical Summary ---
Author Organization [facility] Address [address] [facility] [address] [place] [address] Phone Care Team Providers Care Corporate Compliance Director Name Role Phone Jaswinder ESCOBAR, Lane Vyas [phone] Conditions or Problems Problem Name Problem Code Onset Date Status Entry Date Provider Comment Standard Description Annotate Inguinal lymphadenopa thy, right 409920857 (SNOMED CT) 11/26 Active 11/26 Lane San MD. Inguinal lymphadenopathy Serratia B96.89 (ICD-10-CM ) Active Lyla Dalal Other specified bacterial agents as the cause of diseases classified elsewhere Blood loss anemia, acute D62 (ICD-10-CM ) Active Lyla Dalal Acute posthemorrhagic anemia Benign Essential Hypertension 21268340 (SNOMED CT) Active Lyla Dalal Benign hypertension [...] RECONSTITUTED 1gm IV Q24hrs/ OPAT ERTAPENEM SODIUM 71429427953 Stephanie S AMITRIPTYLINE HCL 150 MG TABS take 1 tablet daily AMITRIPTYLINE HCL 55821846500 Nohemi Juan A TREXIMET 85-500 MG TABS as needed SUMATRIPTAN-NAPR OXEN SODIUM 72981869705 Nohemi A BENAZEPRIL HCL 20 MG TABS take 1 tablet daily BENAZEPRIL HCL 61502358394 Nohemi A FORTAZ (IV) FORTAZ (IV) Nohemi A FORTAZ (IV) FORTAZ (IV) Nohemi A INVANZ 1 GM INTRAVENOUS SOLUTION RECONSTITUTED 1gm IV Q24hrs/ OPAT ERTAPENEM SODIUM 69946663608 Neelima Velarde RN Medications Administered No information available. Allergies, Adverse Reactions, Alerts Allergy Name Reaction Description Start Date Severity Statu s Provider STADOL Moderate Active Alexandre S Results Date Name Value Unit Range Flag Description Lab Report: CBC w Auto Diff [id number] 0.0 GE use only - for LinkLogic import when terms are not otherwise specified Clinical Lists Update: [facility] METH[facility]TA[facility] secmsg Patient's prefered method of contact [...]
--- OUTSIDE RECORDS SUMMARY | 2025-06-29 10:21 | XMS_ITS | Encounter Summary ---
Author Organization [facility] Address [address] [place] [address] Care Team Providers Care Glazing Department Supervisor Name Role Phone Rogelio Jones MD Primary Care Provider + [phone] Encounter Details Date Type Department Care Team [...] Description 12/24/2025 3:00 PM EDT Office Visit [facility] [address] [facility] [address] [place] [address] Landry Martinez MD [address] [facility] [address] [place] [address] documented as of this encounter Visit Diagnoses Not on filedocumented in this encounter Care Teams Glazing Department Supervisor Relationship Specialty Start Date End Date Rogelio Jones MD [address] [place] [address] PCP - General Family Medicine 11/27/24 documented as of this encounter
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
== END 2025-06-29 23:59 | disposition home or self-care (01) ==
PROVIDERS: PCP Family Medicine; Visit Provider Physician Assistant Surgical
DX: S52.501D Unspecified fracture of the lower end of right radius, subsequent encounter for closed fracture with routine healing (principal); X58.XXXD Exposure to other specified factors, subsequent encounter
CPT/HCPCS: 73110

== ENCOUNTER 2025-07-30 08:23 | Outpatient (CLI) | payer MEDICARE, OTHER, SELFPAY ==
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
--- NOTE | 2025-07-30 08:26 | XR_ITS ---
FINAL REPORT CLINICAL HISTORY: right wrist fx. fell a month ago FINDINGS: AP, oblique, and lateral views of the right wrist were obtained. There is no prior exam for comparison. There is a comminuted intra-articular fracture of the distal radius favored to be subacute or chronic. No acute fracture identified. Multijoint degenerative disease is most pronounced at the first carpometacarpal joint. There is no acute soft tissue abnormality. IMPRESSION: No acute osseous abnormality of the right wrist. Distal radius fracture favored to be subacute or chronic. Reviewed, Interpreted and Dictated by Kaelyn Call MD Transcribed by Aracelis Leon Authenticated and [facility]
--- OUTSIDE RECORDS SUMMARY | 2025-07-30 08:36 | XMS_ITS | Referral Summary ---
Author Organization [employer] ([place], [place], [place], [place]) Address [address] [place] [address] Care Team Providers Care Emd Special Education Teacher Name Role Phone Unavailable Primary Care Provider Unavailabl e Social History Tobacco Use Types Packs/Day Years Used Date Smoking Tobacco: Never Assessed Food Insecurity Answer Date Recorded Food run out past 12 months Not on file 06/2024 Food did not last past 12 months Not on file 05/26/2024 Employment Answer Date Recorded Help finding and keeping a job Not on file 0 05/26/2024 Family and Community Support Answer Kevin e Recorded Help with Day to Day Activities Not on file 05/26/2024 Feeling Lonely or Isolated Not on file 05/26 Educational Attainment Answer Date Jesus rded Speak language other than Haitian at home Not on file 05/26/2024 Want help with school or training Not on file 05/26/2024 Substance Use Answer Date Recorded Used prescription meds for non-medical reasons N ot on file 05/26/2024 Used illegal drugs past 12 months Not on file 05/26/2024 Sex and Gender Information Value Date Recorded Sex Assigned at Male 06/23/2024 7:03 AM CDT Legal Sex Male 2:03 PM CDT Gender Identity Male 06/23/2024 7:03 AM CDT Sexual Orientation Not on file Plan of Treatment Not on file Insurance MEDICARE PART A B [employer]
--- OUTSIDE RECORDS SUMMARY | 2025-07-30 08:36 | XMS_ITS | Encounter Summary ---
Author Organization [facility] Address [address] [place] [address] Care Team Providers Care Beef Pusher Name Role Phone Rogelio Jones MD Primary Care Provider + [phone] Reason for Visit * Reason Comments COOLING PAN TENDER Treatment Encounter Details Date Type Department Care Team (Late st Contact Info) Description 07/03/2025 Documentation [facility] SPEECH LANGUAGE [address] [place] [id number] Mayra Reza, MS CCC-COOLING PAN TENDER [address] [place] [address] COOLING PAN TENDER Treatment Social History Tobacco Use Types Packs/Day Years [...] AM EDT documented as of this encounter Discharge Summaries * Mayra Reza, MS CCC-COOLING PAN TENDER - 07/03/2025 10:49 AM EDT Speech Language Pathology Discharge Summary Patient Name: Ghulam Peck : 1950 Today's Date: 07/03/2025 COOLING PAN TENDER OP Goals Row Name 07/03/25 1000 Goal Type Needed Goal Type Needed Memory;Attention/Orientation;Other Adult Goals -HG Subjective Comments Subjective Comments Pt seen for consistent skilled therapy services and with progression of disease, has determined that sessions are no longer warranted at this time. -HG Memory Goals Memory LTG's Patient and family will implement compensatory strategies to maximize patient???s Memory function so patient can continue to participate in daily activities -HG Patient and family will implement compensatory strategies to maximize patient???s Memory function so patient can continue to participate in daily activities 90%:;with cues -HG Status: Patient and family will implement compensatory strategies to maximize patient???s Memory function so patient can continue to participate in daily activities New -HG Memory STG's Patient will demonstrate improved ability to recall information by immediately recalling a series of words;Patient???s memory skills will be enhanced as reported by patient by utilizing internal memory strategies to recall up to 3 pieces of information after a 5- minute delay;Patient???s memory skills will be enhanced as reported by patient by using external memory aides -HG Patient will demonstrate improved ability to recall information by immediately recalling a series of words 70%:;related;with no delay;with cues -HG Status: Patient will demonstrate improved ability to recall information by immediately recalling a series of words Progressing as expected -HG Comments: Patient will demonstrate improved ability to recall information by immediately recalling a series of words 03/20/25: Immediate recall of Picture scene and pt was 80% accurate. 02/20/25: FROMAJEscore for immediate recall was accurate. Immediate recall for related words and pt was 80-90% accurate. For un- related words and pt was 80-90% accurate. For un-related pictures and pt was 100% accurate. 12/28/24: Immediate recall of children and grandchildren and visual prompt was made. Pt was able to name family members with 75% independence. 11/23/24: RBANS Immediate recall score of 57 is improvedfrom previous assessment. 10/03/24: Immediate recall of paired words and pt was 7/10 x 3. 09/11/24:Immediate recall of associated words and pt was 80% accurate. 08/21/24: Immediate recall of 4 related words and pt was 100% accurate with mid cues. -HG Patient???s memory skills will be enhanced as reported by patient by utilizing internal memory strategies to recall up to 3 pieces of information after a 5- minute delay 70%:;with cues -HG Status: Patient???s memory skills will be enhanced as reported by patient by utilizing internal memory strategies to recall up to 3 pieces of information after a 5- minute delay Progressing as expected -HG Comments: Patient???s memory skills will be enhanced as reported by patient by utilizing internal memory strategies to recall up to 3 pieces of information after a 5- minute delay 04/03/25: Without prompts, pt unable to recall recent events such as dinners, parties and visiting with family and friends. 03/20/25: Delayed recall strategy of repeating information after it being told. 02/20/25: NICOLEAJE score for delayed recall and pt was 0/2. 12/28/24: Functional recall using SRT of pt's wedding anniversary and pt was to recall information up to 4 mins. 12/21/24: Functional recall of where to look for weekly schedule and pt required mod cues. 11/23/24: RBANS Delayed recall score of 60 is improved from pre vious assessment. 10/03/24: Delayed recall of paired words and pt was 6/6 for consistent six. With cues, pt improved to 8/9. 09/11/24: Delayed recall of associated words and pt was 70% accurate. 08/21/24: Delayed recall of 4 related words and pt was able to recall the information by the end of session without prompt. 85% accurate with mid cues. -HG Patient???s memory skills will be enhanced as reported by patient by using external memory aides 80%:;with cues -HG Status: Patient???s memory skills will be enhanced as reported by patient by using external memory aides Progressing as expected -HG Comments: Patient???s memory skills will be enhanced as reported by patient by using external memory aides 03/20/25: Pt reports checking the calendar on the refrigerator door. 02/20/25: Pt and report ongoing use of signs in the home. 01/18/25: has implemented a more detailed weekly/daily schedule as a reference for pt. 12/28/24: plans to hang them up and stated, It's on my To-Do List. 12/21/24: Discussed the use of a visual on bathroom mirror for first thing in morning for orientation. 11/23/24: Discussed use of strategies in the home to aide in recognition of and facts about theirmarriage. -HG Attention/Orientation Goals Attention/Orientation LTG's Patient will be able to participate in the community safely -HG Patient will be able to participate in the community safely With Cues -HG Status: Patient will be able to participate in the community safely Progressing as expected -HG Comments: Patient will be able to participate in the community safely 02/20/25: [facility] for math portion and pt was 2. 12/28/24: Started this date was a Memory Journal for pt to complete at home. Pt able to reminisce and fill in blanks ~70-80% I'ly. 12/21/24: Continued conversation about daily schedule and placement on the refrigerator and adding to it. 11/23/24: Pt is very structured in his routine at home and does have a system of his daily tasks. -HG Attention/Orientation STG's Patient will improve attention skills by sustaining focus in order to actively hold and manipulate information provided (e.g., sequencing auditorily presented number series in ascending or descending order);Patient will improve attention skills by alternating or shiftingfocus between two different tasks in order to complete both tasks;Patient will improve attention skills by dividing focus and responding simultaneously to multiple tasks or in order to complete task -HG Patient will improve attention skills by sustaining focus in order to actively hold and manipulate information provided (e.g., sequencing auditorily presented number series in ascending or descendingorder) 80%:;with cues -HG Status: Patient will improve attention skills by sustaining focus in order to actively hold and manipulate information provided (e.g., sequencing auditorily presented number series in ascending or descending order) Progressing as expected -HG Comments: Patient will improve attention skills by sustaining focus in order to actively hold and manipulate information provided (e.g., sequencing auditorily presented number series in ascending or descending order) 04/03/25: Attention for similarities and differences and pt was 60-70% accurate. 04/03/25: Sustained attention for a written direction worksheet and pt was able to attend with visual and verbal prompts. 01/18/25: Sustained attention for card sorting and placing cards in order from [employer] and pt required consistent cues. 11/23/24: RBANS Attention score of 60 is improved from previous assessment. 09/11/24: Attention for written directions worksheet and pt was 70% accurate. 08/21/24: Attention for Crazy 8 card game and pt was 80% accurate. -HG Patient will improve attention skills by alternating or shifting focus between two different tasks in order to complete both tasks 70%:;with cues -HG Status: Patient will improve attention skills by alternating or shifting focus between two different tasks in order to complete both tasks Progressing as expected -HG Comments: Patient will improve attention skills by alternating or shifting focus between two different tasks in order to complete both tasks : Alt attention for card that is one less than the one before it and pt was 50-60% accurate. 10/03/24: Alternating attention for red card and black card and pt required mod cues. -HG Patient will improve attention skills by dividing focus and responding simultaneously to multiple tasks or in order to complete task 70%:;with cues -HG Status: Patient will improve attention skills by dividing focus and responding simultaneously to multiple tasks or in order to complete task Progressing as expected -HG Comments: Patient will improve attention skills by dividing focus and responding simultaneously to multiple tasks or in order to complete task 10/03/24: Divided attention for card less than one before it and pt was ~70% accurate with min cues. 09/11/24: Divided attention for opposite word search and pt was 90% accurate with mod cues. 08/21/24: Divided attention for One Pile Card game and pt was 60% with mod cues. -HG Other Goals Other Adult Goal- 1 Patient will complete reasoning and problem solving assessment with RECs to follow. -HG Status: Other Adult Goal- 1 Achieved -HG Comments: Other Adult Goal- 1 08/21/24: FROMAJE score of 10 places pt in the mild category. -HG Other Adult Goal- 2 Patient will complete thought organization tasks with 80% accuracy with min cues. -HG Status: Other Adult Goal- 2 Progressing as expected -HG Comments: Other Adult Goal- 2 04/03/25: Sequencing 4 steps and pt was 75% accurate. 03/20/25: Categorymatrix and pt was 70% accurate I'ly. 02/20/25: On AAC device, pt able to name and explain pictures ofcommon items with mod cues. 01/18/25: Similarities and Differences and pt was 75% accurate. 12/21/24: Completion of naming task and pt was 80-90% accurate for familiar objects. 11/23/24: RBANS Language score of 82 is improved from previous assessment. 10/03/24: 4 step sequencing: pt was 75% accurate. -HG Other Adult Goal- 3 Patient will improve RBANS Total Score to 70 placing patient in Borderline range. -HG Status: Other Adult Goal- 3 Progressing as expected -HG Comments: Other Adult Goal- 3 11/23/24: RBANS Total score of 53 is improved from previous assessment.-HG Other Adult Goal- 4 Pt will complete reasoning tasks with 80-90% accuracy with cues. -HG Status: Other Adult Goal- 4 Progressing as expected -HG Comments: Other Adult Goal- 4 02/20/25: FROMAJE Reasoning and Judgment and pt was accurate with cues.10/03/24: Problem solving scenarios and pt was 90% accurate. -HG COOLING PAN TENDER Time Calculation COOLING PAN TENDER Goal Re-Cert Due Date 05/21/25 - User Frye (r) = Recorded By, (t) = Taken By, (c) = Cosigned By Initials Name Provider Type Mayra Reza MS CCC-COOLING PAN TENDER Speech and Language Pathologist Time Calculation: Mayra Reza MS CCC-COOLING PAN TENDER 07/03/2025 documented in this encounter Plan of Treatment Upcoming Encounters Date Type Department Care Team (Late st Contact Info) Description 12/24/2025 3:00 PM EDT Office Visit [facility] NEUROLOGY [address] [facility] [address] [place] [address] Landry Maritnez MD [address] [facility] [address] [place] [address] documented as of this encounter Visit Diagnoses Diagnosis Memory loss- Primary documented in this encounter Care Teams Beef Pusher Relationship Specialty Start Date End Date Rogelio Jones MD [address] [facility] [address] [place] [address] PCP - General Family Medicine 11/27/24 documented as of this encounter
--- OUTSIDE RECORDS SUMMARY | 2025-07-30 08:36 | XMS_ITS | Clinical Summary ---
Author Organization [facility] Address [address] [place] [address] Care Team Providers Care In Flight Crew Member Name Role Phone Christo Stevens MD Primary Care Provider [phone] Daniela Mckinley MD Unavailable [phone] Daniela Mckinley MD Unavailable [phone] Allergies No known active allergies Medications amitriptyline [...] 12/10/2021 11:08 AM EST Plan of Treatment Health Maintenance Due Date Last Done Comments [facility]-Depression Screening 1950 [facility]-/Child/Adol SDOH Screenings 1950 [facility]- SDOH Screenings 1969 [facility]-Adult SDOH Screenings 1969 CT Colonography 02/14/1996 Colonoscopy 02/14/1996 FIT-DNA 02/14/1996 FIT 02/14/1996 FOBT 02/14/1996 Sigmoidoscopy 02/14/1996 [facility]-Colorectal Cancer Screening 02/14/1996 [facility]-Pneumococcal Vaccine: 50+ Years (1 of 1 - PCV) 2001 [facility]-Zoster Vaccines (2 of 3) 08/10/2016 06/15/2016 [id number] Vaccine ( season) 2025 08/19/2023, 08/17/2021, 01/04/2021, Additional history [...] this topic Insurance MEDICARE [employer] Care Teams In Flight Crew Member Relationship Specialty Start Date End Date Christo Stevens MD [address] [place], [place] [address] PCP - General 02/28/21 Daniela Mckinley MD [address] [place] [address] Service Attending Neurology 06/11/21 Daniela Mckinley MD [address] [place] [address] Service Attending Neurology 12/10/21
--- OUTSIDE RECORDS SUMMARY | 2025-07-30 08:36 | XMS_ITS | Encounter Summary ---
Author Organization [facility] Address [address] [place] [address] Care Team Providers Care Uncrater Name Role Phone Christo Stevens MD Primary Care Provider + [phone] Daniela Mckinley MD Unavailable [phone] Daniela Mckinley MD Unavailable [phone] Encounter Details Date Type Department Care Team (Late st Contact Info) Description 11/24/2023 Community [facility] [address] [place] [address] Landry Martinez MD [address] [facility] [address] [place] [address] Memory loss (Primary Dx) Social [...] as of this encounter Plan of Treatment Not on file documented as of this encounter Visit Diagnoses Diagnosis Memory loss- Primary documented in this encounter Additional Health Concerns Assessment Noted Time A fall risk assessment has been complete d for the patient 06/11/2021 10:40 AM EDT documented as of this encounter Care Teams Uncrater Relationship Specialty Start Date End Date Christo Stevens MD [address] [place] [address] PCP - General 02/28/21 Daniela Mckinley MD [address] [place] [address] Service Attending Neurology 06/11/21 Daniela Mckinley MD [address] [place] [address] Service Attending Neurology 12/10/21 documented as of this encounter
--- OUTSIDE RECORDS SUMMARY | 2025-07-30 08:37 | XMS_ITS | Clinical Summary ---
Author Organization [facility] Address [address] [place] [address] Care Team Providers Care Residential Caregiver Name Role Phone Rogelio Jones MD Primary Care Provider + [phone] Allergies Active Allergy Reactions Criticality Noted Date [...] 5 Active Cholecalciferol (Vitamin D3) 1.25 MG (25758 UT) capsule Take 1 capsule by mouth [...] Encounters Date Type Department Care Team Description 07/03/2025 Documentation [facility] SPEECH LANGUAGE [address] [place] [address] Mayra Reza MS CCC-PATIENT TRANSPORT ORDERLY PATIENT TRANSPORT ORDERLY Treatment 05/28/2025 2:15 PM EDT Office Visit 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) 05/28/2025 Travel from Last 3 Months Immunizations Immunization Administration Dates Next Due FLUAD TRI 65YR+ 08/18/2024 Fluzone >6mos 07/21/2015 Fluzone High-Dose 65+YRS 07/15/2020,07/18,10/31/2018,08/31/2017, 016 Fluzone High-Dose 65+yrs 08/19/2023 Rabies IM 2 03/13/2014,03/06/2014,03/02/2014 ,02/27/2014 Rabies Immune Globulin 02/27/2014 Td, Not Adsorbed 06/30/2022 Tdap 11/25/2018,04/25/2018 Zostavax 06/15/2016 Family History Medical History Relation Name Comments Alcohol abuse Father Aaron Migraines Father Aaron Stroke Father Pacifica Diabetes Mother Dementia Sister Tasha Alzheimers Memory [...] PM EDT Office Visit [facility] NEUROLOGY [address] [facility] [address] [place] [address] Landry Martinez MD [address] [facility] [address] [place] [address] Health Maintenance Due Date Last Done Comments COLOGUARD 02/14/1996 COLON CANCER SCREENING 5 YEA R SIGMOIDOSCOPY 02/14/1996 COLONOSCOPY 02/14/1996 COLORECTAL CANCER SCREENING 02/14/1996 CT COLONOGRAPHY 02/14/1996 FECAL OCCULT BLOOD TEST 02/14/1996 FIT Testing (1 year) 02/14/1996 Pneumococcal Vaccine 50+ (1 of 1 - PCV) 2001 ZOSTER VACCINE (2 of 3) 08/10/2016 06/15/2016 ANNUAL WELLNESS VISIT 01/17/2021 HEPATITIS C SCREENING 01/17/2021 INFLUENZA VACCINE 05/18/2025 08/18/2024, , 07/15/2020, Additional history exists COVID-19 Vaccine (5 - 2024-2 6 season) 2025 08/19/2023, 08/17/2021, 01/04/2021, Additional history exists PATIENT TRANSPORT ORDERLY PLAN OF CARE 07/02/2025 04/03/2025, 03/2025, 07/21/2024 TDAP/TD VACCINES (4 - Td or Tdap) 06/30/2032 06/30/2022, 11/25/2018, 04/25/2018 Procedures Procedure Name Priority Date/Time Associated Diagnosis Comments SCANNED COGNITIVE ASSESSMENT 05/28/2025 from Last 3 Months Results * COGNITIVE ASSESSMENT SCAN (05/28/2025) [facility] New Onbase NEUROLOGY ORDERABLES Final Re sult from Last 3 Months Insurance MEDICARE A & B [facility] Care Teams Residential Caregiver Relationship Specialty Start Date End Date Rogelio Jones MD [address] [facility] [address] [facility] [address] [place] [address] PCP - General Family Medicine 11/27/24
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
--- OUTSIDE RECORDS SUMMARY | 2025-07-30 08:37 | XMS_ITS | Clinical Summary ---
Author Organization [employer] ([place], [place], [place], [place]) Address [address] [place] [address] Care Team Providers Care Washing Tub Operator Name Role Phone Unavailable Primary Care Provider [...] Date Jesus rded Speak language other than Beninese at home Not on file 05/26/2024 Want [...] Orientation Not on file Plan of Treatment Health Maintenance Due Date Last Done Comments CT Colonography 1951 Colonoscopy 1951 Colorectal Cancer Screening 1951 FOBT/FIT 1951 Fit-DNA (Cologuard) 1951 Sigmoidoscopy 1951 Depression Screening (12+) 1963 Tobacco Cessation Counseling and Screening (12+) 1963 Hepatitis C Screening 1969 Pneumococcal 50+ years (1 of 1 - PCV) 2001 Shingles Vaccine (Zoster) (2 of 2) 08/10/20162015 Medicare Initial AWV [id number] 01/17/2017 Falls Risk Screening 10/18/2024 COVID-19 VACCINE (5 - 2024-2 6 season) 2025 08/19/2023, 08/17/2021, 01/04/2021, Additional history exists Influenza Vaccine (#1) 2025 , 07/15/2020, 08/01/2019, Additional history exists Respiratory Syncytial Virus (RSV) Adult or (1 - 1-dose 75+ series) 2026 DTAP/TDAP/TD VACCINES (4 - T d or Tdap) 06/30/2032 06/30/2022, 11/25/2018, 04/25/2018 Insurance MEDICARE PART A B [employer]
--- OUTSIDE RECORDS SUMMARY | 2025-07-30 08:37 | XMS_ITS | Encounter Summary ---
Author Organization Healthcare Address [address] [place] [address] Care Team Providers Care Cleaning Professional Name Role Phone Christo Stevens MD Primary Care Provider + [phone] Daniela Mckinley MD Unavailable [phone] Daniela Mckinley MD Unavailable [phone] Encounter Details Date Type Department Care Team (Late st Contact Info) Description 01/19/2022 [facility] [address] [place] [address] Sabi Bonner PA [address] [place] [address] Memory loss (Primary Dx) Social History Tobacco [...] documented as of this encounter Care Teams Cleaning Professional Relationship Specialty Start Date End Date Christo Stevens MD [address] [place] [address] PCP - General 02/28/21 Daniela Mckinley MD [address] [place] [address] Service Attending Neurology 06/11/21 Daniela Mckinley MD [address] [place] [address] Service Attending Neurology 12/10/21 documented as of this encounter
== END 2025-07-30 23:59 | disposition home or self-care (01) ==
LOC: RAD 08:24
PROVIDERS: PCP Family Medicine; Visit Provider Physician Assistant Surgical
DX: S52.501D Unspecified fracture of the lower end of right radius, subsequent encounter for closed fracture with routine healing (principal); W19.XXXD Unspecified fall, subsequent encounter
CPT/HCPCS: 73110